=== PATIENT | male | born 1955 | race Caucasian/White ===

== ENCOUNTER 2019-07-07 12:15 | Emergency (ER) | payer MEDICAID, SELFPAY ==
[2019-07-07 12:19] VITALS: BP 145/78; PULSE 67; RESP 16; TEMP 36.4; O2SAT 96; BMI 38.3
[2019-07-07 12:32] VITALS: RESP 17
--- NOTE | 2019-07-07 12:33 | ED_ITS ---
HPI - Wound/Laceration General: Chief Complaint: Wound/Laceration Stated Complaint: lip lac Time Seen by Provider: 07/07/19 12:26 History of Present Illness: HPI narrative: Patient was using an air socket rinse to remove a bearing on an axle and it flew off and struck him in his upper lip on the left side and he sustained a laceration just a few minutes ago Onset (ago): minute(s) Location: face Place: home Patient tetanus UTD: Yes Context: accidental Associated symptoms: Reports no associated symptoms; Denies chills or fever(s) Review of Systems Const: Denies: fever or chills Skin/Breast: Reports: other (Laceration to the lip) Psych: Reports: anxiety PFSH ED PFSH: Social History Smoking and tobacco status: never smoked Physical Exam Const: COMMON NORMALS: no apparent distress and oriented x3 HENMT: COMMON NORMALS: external nose normal FACE & SINUS: normal facial exam NOSE: external nose normal NOSE IMAGE: 1. Laceration superficial did not cross vermilion line and I glued it closed no injury to the inside patient does not have any teeth Neuro: COMMON NORMALS: oriented x3 Psych: COMMON NORMALS: mental status grossly normal Procedures Laceration Laceration 1: Site: lip (Upper lip on the left side) Side (If applicable): left Size (cm): 1.5 Description: linear Depth: simple, single layer Size (cm): other (Glue) Course Vital Signs: Vital signs: Vital Signs Temperature 97.5 F L 07/07/19 12:19 Pulse Rate 67 07/07/19 12:19 Respiratory Rate 16 07/07/19 12:19 Blood Pressure 145/78 07/07/19 12:19 Pulse Oximetry 96 07/07/19 12:19 Coding Level of Care Code ED Manager Plant for Karen Montoya
--- NOTE | 2019-07-07 12:35 | PC.NURSE ---
physician decided not to suture lac
[2019-07-07 12:49] VITALS: RESP 16
== END 2019-07-07 12:49 | disposition home or self-care (01) ==
LOC: ER 12:54
PROVIDERS: Emergency Provider Nurse Practitioner Family; Family Provider Internal Medicine
DX: S01.511A Laceration without foreign body of lip, initial encounter (principal); W22.8XXA Striking against or struck by other objects, initial encounter
CPT/HCPCS: 12011; 12345; 99281; 99282

== ENCOUNTER → 2019-11-29 09:16 | Outpatient (BNVA) | payer MEDICAID, SELFPAY | PROVIDERS: Family Provider Internal Medicine; PCP Internal Medicine; Referring Provider Internal Medicine; Visit Provider Urology | DX: N48.1 Balanitis (principal); N52.9 Male erectile dysfunction, unspecified; E11.9 Type 2 diabetes mellitus without complications; N47.1 Phimosis | CPT/HCPCS: 81001 ==

== ENCOUNTER → 2020-01-28 09:06 | Outpatient (BNVA) | payer MEDICAID, SELFPAY | PROVIDERS: Family Provider Internal Medicine; PCP Internal Medicine; Visit Provider Urology | DX: N47.1 Phimosis (principal) | CPT/HCPCS: 88304 ==

== ENCOUNTER → 2020-03-10 08:49 | Outpatient (BNVA) | payer MEDICAID, SELFPAY | PROVIDERS: Family Provider Internal Medicine; PCP Internal Medicine; Visit Provider Urology | DX: N48.1 Balanitis (principal) | CPT/HCPCS: 81003 ==

== ENCOUNTER → 2020-05-04 10:38 | Outpatient (BNVA) | payer MEDICAID, SELFPAY | PROVIDERS: Family Provider Internal Medicine; PCP Internal Medicine; Referring Provider Internal Medicine; Visit Provider Specialist | DX: S43.004A Unspecified dislocation of right shoulder joint, initial encounter (principal); X58.XXXA Exposure to other specified factors, initial encounter | CPT/HCPCS: 73030 ==

== ENCOUNTER 2020-05-29 06:42 | Outpatient (CLI) | payer MEDICAID, SELFPAY ==
--- NOTE | 2020-05-29 07:15 | MR_ITS ---
WS: [id number] MRI RIGHT SHOULDER HISTORY: S43.004A - Unspecified dislocation of right shoulder joint, initial encounter COMPARISON: 12/19/2017 TECHNIQUE: Multiplanar sequences of the shoulder joint are submitted. Moderate AC joint hypertrophy. Bone and soft tissue hypertrophy with osteophytes encroaching upon the supraspinatus tendon and muscle. There is increase fluid along the AC ligament which is new. There is a large amount of fluid surrounding the humeral head. This fluid is contiguous with the AC j oint fluid. There is distention of the subacromial and subdeltoid bursa and small loose bodies in the fluid. Humeral head is high riding abutting the undersurface of the acromion. Marked widening of the glenohumeral joint. Complete tear with retraction of the supraspinatus tendon, tendon is retracted t o the glenoid. Subscapularis tendon is probably intact although thin. The distal infraspinatus tendon is not identified as intact. Severe atrophy of the supraspinatus muscle. There is mild atrophy of th e subscapularis and infraspinatus muscles. Marked irregularity of loss of cartilage involving the humeral head. Biceps tendon is not identified in the glenoid. May be retracted and medially displaced. No marrow edema or fractures. There are least 2 anchors in the humeral head from prior surgical repai r. MR/MR shoulder RT wo con* [id number] IMPRESSION: 1. Complete full-thickness tear of the supraspinatus with atrophy. Tendon is r etracted to a the glenoid. Suspect infraspinatus tendon may also be torn as it is not identified distally. 2. There is additional mild atrophy of the infraspinatus and subscapularis ten dons. 3. Subscapularis tendon is probably intact although thin. 4. Biceps tendon not identified at the bicipital groove and probably torn and medially dislocated. 5. Large joint effusion with loose bodies. Humeral head is high riding with ma rked widening of the glenohumeral joint space and lateral subluxation of the hu meral head. 6. Marked advanced degenerative changes surrounding the humeral head with loss of cartilage. 7. Moderate AC joint arthritis with encroachment upon the rotator cuff. Torn A C ligament.
== END 2020-05-29 06:43 | disposition home or self-care (01) ==
PROVIDERS: PCP Internal Medicine; Visit Provider Orthopaedic Surgery
DX: S43.004A Unspecified dislocation of right shoulder joint, initial encounter (principal); X58.XXXA Exposure to other specified factors, initial encounter; M75.121 Complete rotator cuff tear or rupture of right shoulder, not specified as traumatic; M25.411 Effusion, right shoulder
CPT/HCPCS: 73221

== ENCOUNTER → 2020-06-02 10:58 | Outpatient (BNVA) | payer MEDICAID, SELFPAY | PROVIDERS: PCP Internal Medicine; Visit Provider Orthopaedic Surgery | DX: Z20.822 Contact with and (suspected) exposure to COVID-19 (principal); Z01.812 Encounter for preprocedural laboratory examination | CPT/HCPCS: 87635 ==

== ENCOUNTER → 2020-06-05 11:44 | Outpatient (BNVA) | payer MEDICAID, SELFPAY | PROVIDERS: PCP Internal Medicine; Visit Provider Specialist | DX: G54.0 Brachial plexus disorders (principal); R20.0 Anesthesia of skin; R20.2 Paresthesia of skin; S14.3XXA Injury of brachial plexus, initial encounter; Y93.9 Activity, unspecified | CPT/HCPCS: 95886; 95908; 99202 ==

== ENCOUNTER 2021-01-15 08:22 | Outpatient (CLI) | payer MEDICAID, SELFPAY ==
--- NOTE | 2021-01-15 08:45 | USCV_ITS ---
Quan Mehta Age: 65 Gender: M : 1955 Exam Date: 01/15/2021 08:43 Ordering Phys: Vahid Lang M.D ([email or web address]) Technologist: Josi Inman [place] [facility] [place]ication: PRE OP AND ESSENTIAL HTN BP: / HR: 68 Rhythm: Sinus Technical Quality: Adequate MEASUREMENTS (Male / Female) Normal Values 2D ECHO LV Diastolic Diameter PLAX 5.6 cm 4.2 - 5.9 / 3.9 - 5.3 cm LV Systolic Diameter PLAX 3.5 cm LV Chamber Size 3.0 cm IVS Diastolic Thickness 1.6 cm 0.6 - 1.0 / 0.6 - 0.9 cm IVS Systolic Thickness 2.0 cm LVPW Diastolic Thickness 1.8 cm 0.6 - 1.0 / 0.6 - 0.9 cm LVPW Systolic Thickness 1.8 cm RV Chamber Size 4.0 cm LVOT Diameter 2.0 cm LV Ejection Fraction 2D Teich 67.2 % LV Ejection Fraction MOD 2C 62.6 % LV Ejection Fraction 2C AL 63.6 % LA Diameter 4.1 cm LA Width 3.3 cm LA Height 4.0 cm RA Width 2.1 cm RA Height 4.3 cm Aorta at Sinotubular Diameter 3.6 cm M-MODE LV Diastolic Diameter MM 7.1 cm 4.2 - 5.9 / 3.9 - 5.3 cm LV Systolic Diameter MM 4.3 cm LV Ejection Fraction MM Teich 67.8 % IVS Diastolic Thickness MM 1.8 cm 0.6 - 1.0 / 0.6 - 0.9 cm IVS Systolic Thickness MM 2.0 cm LVPW Diastolic Thickness MM 1.8 cm 0.6 - 1.0 / 0.6 - 0.9 cm LVPW Systolic Thickness MM 2.5 cm Aortic Annulus Diameter 3.8 cm LA Ao Ratio MM 1.3 MV E Point Septal Separation 0.7 cm DOPPLER AV Peak Velocity 157.0 cm/s LVOT Peak Velocity 94.0 cm/s AV Area Cont Eq vti 2.1 cm squared AV Area Cont Eq pk 2.0 cm squared MV Area PHT 3.7 cm squared Mitral E to A Ratio 1.1 MV E' Velocity 39.0 cm/s Mitral E to MV E' Ratio 9.1 Mitral E to LV E' Lateral Ratio 7.3 Mitral E to LV E' Septal Ratio 12.1 TR Peak Velocity 123.4 cm/s TR Peak Gradient 6.1 mmHg TR Mean Velocity 90.0 cm/s TR Mean Gradient 3.6 mmHg TR Velocity Time Integral 27.5 cm TV Peak E Velocity 59.0 cm/s Right Atrial Pressure 3.0 mmHg Pulmonary Artery Systolic Pressu 9.1 mmHg PV Peak Velocity 69.0 cm/s RV Acceleration Time 0.1 s RV Ejection Time 0.4 s RV AcT/ET 0.4 FINDINGS Left Ventricle Normal left ventricular size. LV systolic function is normal with EF of 55-60%. No regional wall motion abnormalities are noted. Normal diastolic filling pattern. Right Ventricle The right ventricle is normal in size and function. Right Atrium The right atrium is normal in size. Left Atrium The left atrium is normal in size. Mitral Valve Structurally normal mitral valve without significant stenosis or prolapse. There is no mitral regurgitation. Aortic Valve Structurally normal aortic valve without significant sclerosis or stenosis. There is no aortic regurgitation. Tricuspid Valve Structurally normal tricuspid valve without significant stenosis or regurgitation. Insufficient TR jet to calculate RVSP Pulmonic Valve Structurally normal pulmonic valve without significant stenosis. There is no pulmonic regurgitation. Pericardium Normal pericardium without effusion. Aorta Normal ascending aorta dimension. CONCLUSIONS LV systolic function is normal with EF of 55-60% Normal diastolic function No significant valvular heart disease is noted No comparison studies are available Vahid Lang MD (Electronically Signed) Final Date: 17 January 2021 10:55 S
== END 2021-01-15 08:23 | disposition home or self-care (01) ==
LOC: US 08:24
PROVIDERS: PCP Internal Medicine; Visit Provider Internal Medicine
DX: I10 Essential (primary) hypertension (principal); Z01.810 Encounter for preprocedural cardiovascular examination
CPT/HCPCS: 93306

== ENCOUNTER → 2021-03-27 14:37 | Outpatient (BNVA) | payer MEDICAID, SELFPAY | PROVIDERS: PCP Internal Medicine; Visit Provider Orthopaedic Surgery | DX: Z47.1 Aftercare following joint replacement surgery (principal); Z96.619 Presence of unspecified artificial shoulder joint | CPT/HCPCS: 73030 ==

== ENCOUNTER 2021-04-12 21:57 | Emergency (ER) | payer MEDICAID, SELFPAY ==
[2021-04-12 22:13] VITALS: BP 167/88; PULSE 76; RESP 16; TEMP 37.8; O2SAT 97
[2021-04-12 23:35] LABS: Glucose Point of Care 149 mg/dL (70-110)
[2021-04-12 23:40] LABS: Basophils % 0.2 %; Eosinophils # 0.1 10^3/uL (0.0-0.8); Eosinophils % 2.7 %; Hematocrit 34.8 % (42.0-52.0); Hemoglobin 11.1 g/dL (11.7-16.6); Lymphocytes # 0.9 10^3/uL (0.8-4.8); Lymphocytes % 18.8 %; Mean Corpuscular HGB Conc 31.9 g/dL (30.0-36.0); Mean Corpuscular Hemoglobin 27.6 pg (28.0-34.0); Mean Corpuscular Volume 86.6 fl (80-94); Mean Platelet Volume 10.4 fL (7.4-10.4); Monocytes # 0.4 10^3/uL (0.2-0.9); Monocytes % 8.5 %; Neutrophils # 3.33 10^3/uL (1.8-7.7); Neutrophils % 68.6 %; Nucleated Red Blood Cells % 0 %; Platelet Count 136 10^3/cmm (130-400); Red Blood Count 4.02 10^6/uL (4.1-5.3); Red Cell Distribution Width 16.2 % (12.1-15.1); White Blood Count 4.9 10^3/uL (4.0-10.0)
[2021-04-13 00:01] LABS: Alanine Aminotransferase 40 U/L (0-41); Albumin Level 3.9 g/dL (3.5-5.2); Alkaline Phosphatase 101 IU/L (40-130); Anion Gap 21.2 (5-19); Aspartate Amino Transferase 58 U/L (0-40); Blood Urea Nitrogen 8 mg/dL (8-23); Calcium 8.4 mg/dL (8.5-10.5); Carbon Dioxide 21 mmol/L (22-29); Chloride 101 mmol/L (98-107); Globulin 2.7 g/dL (1.3-4.6); Glomerular Filtration Rate 75.5 mL/min (90-130); Glucose 140 mg/dL (65-115); Osmolality Calculated 289 mOsm/kg (285-295); Potassium 4.2 mmol/L (3.5-5.1); Sodium 139 mmol/L (136-145); Total Bilirubin 0.4 mg/dL (0.15-1.2); Total Protein 6.6 g/dL (6.6-8.7)
--- NOTE | 2021-04-13 00:07 | ED_ITS ---
HPI - General Adult General: Chief complaint: General Medical Stated complaint: High Blood Sugar 436 Time Seen by Provider: 04/12/21 23:17 Source: patient Mode of arrival: ambulatory Limitations: no limitations History of Present Illness: HPI narrative: 65-year-old male states that he has been having nasal congestion sinus pain and some nasal discharge. He states that he gets a sinus infection every year and is been having the symptoms for a week. Denies any fever he states he is also had a sore throat has had a slight cough over the last week as well. He denies any shortness of breath vomiting or diarrhea. He denies any high fevers. Associated symptoms: Deny chest pain, dyspnea, headache(s), nausea, rash or v omiting Review of Systems Const: Denies: fever(s), chills, body aches or change in appetite Eyes: Denies: blurry vision or eye discomfort ENMT: Reports: throat pain, nasal discharge, nasal congestion and sinus pain Card: Denies: chest pain Resp: Denies: dyspnea GI: Denies: abdominal pain, nausea, vomiting or diarrhea : Denies: dysuria Musc: Denies: neck pain or back pain Skin/Breast: Denies: rash Neuro: Denies: headache(s) Psych: Denies: depression Reji/Lymph: Denies: easy bruising All/Imm: Denies: urticaria PFSH ED PFSH: Medical History Balanitis Diabetes Erectile dysfunction Hyperlipidemia Hypertension Myalgia Phimosis Seizure disorder Surgical History H/O umbilical hernia repair History of colonoscopy Hx of cholecystectomy S/P rotator cuff repair right Family History Mother Diabetes Heart disease Hyperlipidemia Father Heart disease Social History Alcohol intake: never Marital status: Current occupational status: retired History of recent travel: No Physical Exam Const: COMMON NORMALS: no acute distress, patient oriented x3 and healthy appearing HENMT: COMMON NORMALS: normocephalic, atraumatic and external ears normal HEAD & SCALP: normocephalic and atraumatic FACE & SINUS: Facial tenderness on exam of face and sinuses (over maxiallary sinuses) EXTERNAL EAR: Yes external ears normal MOUTH: Normal oral and palatal mucosa present THROAT: posterior oropharynx normal Eye: COMMON NORMALS: Equal, round and reactive pupils present and EOMs intact bilaterally PUPIL: Yes Equal, round and reactive pupils present Neck/C-Spine: COMMON NORMALS: full ROM and supple Chest: COMMONS NORMALS: normal inspection of the chest and normal palpation of entire chest wall Resp: COMMON NORMALS: normal respiratory effort, No retractions, No use of accessory muscles and clear to auscultation bilaterally AUSCULTATION: clear to auscultation bilaterally Cardio: COMMON NORMALS: regular rate, regular rhythm and No murmurs present (Cardio) RATE: regular rate RHYTHM: regular rhythm GI: COMMON NORMALS: Normal to inspection, nondistended, normoactive bowel sounds present, Soft to palpation, non-tender and no masses PALPATION: Yes Soft to palpation Extremity: COMMON NORMALS: normal to inspection and full ROM Neuro: COMMON NORMALS: patient oriented x3, moves all extremities and no focal motor deficits Psych: COMMON NORMALS: mental status grossly normal, Normal thought process present and cooperative THOUGHT PROCESS: Normal thought process present Skin: COMMON NORMALS: no rashes or lesions noted and no wounds GENERAL SKIN EXAM: no rashes or lesions noted Course Vital Signs: Vital signs: Vital Signs Temperature 100.1 F H 04/12/21 22:13 Pulse Rate 76 04/12/21 22:13 Respiratory Rate 16 04/12/21 22:13 Blood Pressure 167/88 04/12/21 22:13 Pulse Oximetry 97 04/12/21 22:13 MDM - General Adult MDM Narrative: Medical decision making narrative: Patient presents with low- grade fever, sinus pain. Likely has a sinus infection patient's not requiring oxygen here some slight haziness on his x-ray possible viral pneumonia we will start him on Augmentin for his sinus infection he is otherwise well-appearing here he stable for discharge he is to follow-up with PCP in 3 to 5 days return if worsening. Lab Data: Labs: Lab Results 04/12/21 04/12/21 04/12/21 23:29 23:33 23:33 WBC 4.9 10^3/uL 10^3/ uL (4.0-10.0) RBC 4.02 10^6/uL L 10 ^6/uL (4.1-5.3) Hgb 11.1 g/dL L g/dL (11.7-16.6) Hct 34.8 % L % (42.0-52.0) MCV 86.6 fl fl (80-94) MCH 27.6 pg L pg (28.0-34.0) MCHC 31.9 g/dL g/dL (30.0-36.0) RDW 16.2 % H % (12.1-15.1) Plt Count 136 10^3/cmm 10^3 /cmm (130-400) MPV 10.4 fL fL (7.4-10.4) Neut % (Auto) 68.6 % % Lymph % (Auto) 18.8 % % [place] % (Auto) 8.5 % % Eos % (Auto) 2.7 % % Baso % (Auto) 0.2 % % Neut # (Auto) 3.33 10^3/uL 10^3 /uL (1.8-7.7) Lymph # (Auto) 0.9 10^3/uL 10^3/ uL (0.8-4.8) [place] # (Auto) 0.4 10^3/uL 10^3/ uL (0.2-0.9) Eos # (Auto) 0.1 10^3/uL 10^3/ uL (0.0-0.8) Baso # (Auto) 0.0 10^3/uL 10^3/ uL (0.0-0.1) Nucleated RBC % (a uto) 0 % % Nucleated RBCs # 0.0 /100WBC /100W BC Sodium 139 mmol/L mmol/L (136-145) Potassium 4.2 mmol/L mmol/L (3.5-5.1) Chloride 101 mmol/L mmol/L (98-107) Carbon Dioxide 21 mmol/L L mmol/ L (22-29) Anion Gap 21.2 H (5-19) BUN 8 mg/dL mg/dL (8-23) Creatinine 1.0 mg/dL mg/dL (0.7-1.2) GFR Calculation 75.5 mL/min L mL/ min (90-130) Glucose 140 mg/dL H mg/dL (65-115) POC Glucose 149 mg/dL H mg/dL (70-110) Calculated Osmolal ity 289 mOsm/kg mOsm/ kg (285-295) Calcium 8.4 mg/dL L mg/dL (8.5-10.5) Total Bilirubin 0.4 mg/dL mg/dL (0.15-1.2) AST 58 U/L H U/L (0-40) ALT 40 U/L U/L (0-41) Alkaline Phosphata se 101 IU/L IU/L (40-130) Total Protein 6.6 g/dL g/dL (6.6-8.7) Albumin 3.9 g/dL g/dL (3.5-5.2) Globulin 2.7 g/dL g/dL (1.3-4.6) SARS-CoV-2 Ag (Rap id) 04/12/21 23:55 WBC RBC Hgb Hct MCV MCH MCHC RDW Plt Count MPV Neut % (Auto) Lymph % (Auto) [place] % (Auto) Eos % (Auto) Baso % (Auto) Neut # (Auto) Lymph # (Auto) [place] # (Auto) Eos # (Auto) Baso # (Auto) Nucleated RBC % (a uto) Nucleated RBCs # Sodium Potassium Chloride Carbon Dioxide Anion Gap BUN Creatinine GFR Calculation Glucose POC Glucose Calculated Osmolal ity Calcium Total Bilirubin AST ALT Alkaline Phosphata se Total Protein Albumin Globulin SARS-CoV-2 Ag (Rap id) Negative (Negative) Discharge Plan Discharge Patient Disposition: Home Clinical Impression: Sinusitis Qualifiers: Sinusitis location: maxillary Chronicity: acute Recurrence: recurrent Qualified Code(s): J01.01 - Acute recurrent maxillary sinusitis Condition: Stable Prescriptions: New Augmentin 875-125 mg tablet 1 tab PO BID Qty: 14 RF: 0 No Action Victoza 2-Kieran 0.6 mg/0.1 mL (18 mg/3 mL) pen injector 1.2 mg SUBCUT DAILY RF: 0 omeprazole 40 mg capsule,delayed release(DR/EC) 40 mg PO BID RF: 0 cholecalciferol (vitamin D3) 1,250 mcg (50,000 unit) tablet PO .2 times weekly RF: 0 metformin 1,000 mg tablet 1,000 mg PO BID RF: 0 furosemide 40 mg tablet 40 mg PO DAILY RF: 0 Lantus U-100 Insulin 100 unit/mL solution 36 unit SUBCUT DAILY RF: 0 loratadine [Allergy Relief (loratadine)] 10 mg tablet 10 mg PO DAILY RF: 0 lisinopril 20 mg tablet 20 mg PO DAILY RF: 0 fluticasone propionate [Flonase Allergy Relief] 50 mcg/actuation spray,suspension 2 spray intranasal DAILY RF: 0 Jardiance 10 mg tablet 10 mg PO DAILY RF: 0 albuterol sulfate 2.5 mg /3 mL (0.083 %) solution for nebulization 2.5 mg inhalation Q4H PRNRF: 0 atorvastatin 20 mg tablet 20 mg PO DAILY RF: 0 metoprolol tartrate 25 mg tablet 25 mg PO BID Qty: 180 RF: 1 sildenafil 100 mg tablet 100 mg PO DAILY PRN (Reason: sexual activity) Qty: 7 RF: 12 Discharge Orders: Discharge ED (Routine); Ordered 04/13/21 Ordered By: Domenico Person Referrals: Re Carson MD [Primary Care Provider] - Discharge Diet: Advance as tolerated Discharge Activity: Resume usual activity Patient Instructions: Sinusitis (ED) Coding Level of Care Code ED Disaster Or Damage Control Specialist for Chg Fwd Exam Comprehensive
--- NOTE | 2021-04-13 00:10 | XRR_ITS ---
PROCEDURE INFORMATION: Exam: XR Chest Exam date and time: 04/13/2021 12:10 AM Age: 65 years old Clinical indication: Cough TECHNIQUE: Imaging protocol: XR of the chest. Views: 1 view. COMPARISON: CR Chest 1 [place] [id number] 04/12/2019 8:15 AM FINDINGS: Lungs: Mild left basilar pneumonia. Pleural spaces: Unremarkable. No pleural effusion. No pneumothorax. Heart/Mediastinum: Unremarkable. No cardiomegaly. Bones/joints: Total right shoulder replacement. XR/XR chest 1V portable [id number] IMPRESSION: Mild left basilar pneumonia.
[2021-04-13 00:18] LABS: SARS Covid-2 Antigen Negative (Negative)
[2021-04-13 00:53] VITALS: PULSE 89; O2SAT 97
[2021-04-13] MEDS: amoxicillin-clav 875-125 mg Tablet 1 TAB PO (00:53)
== END 2021-04-13 00:55 | disposition home or self-care (01) ==
PROVIDERS: Emergency Provider Emergency Medicine; PCP Internal Medicine
DX: J01.01 Acute recurrent maxillary sinusitis (principal); E11.9 Type 2 diabetes mellitus without complications; Z79.84 Long term (current) use of oral hypoglycemic drugs; I10 Essential (primary) hypertension
CPT/HCPCS: 36416; 71045; 80053; 82962; 85025; 87426; 99283

== ENCOUNTER 2021-04-26 08:06 | Outpatient (CLI) | payer MEDICAID, SELFPAY ==
--- NOTE | 2021-04-26 08:00 | FL_ITS ---
WS: [id number] Modified barium swallow, 04/26/2021 Clinical Data: Retention of fluid in the throat, increased phlegm. Comparison: None. Fluoroscopy time: 1.4 minutes. Findings: The patient showed no functional abnormalities. The patient had good anterior to posterior propulsion . There is no aspiration or penetration. The barium tablet passed normally from the oral cavity into the hypopharynx and distally. FL/FL barium swallow modifd [id number] Impression: Negative modified barium swallow.
== END 2021-04-26 08:07 | disposition home or self-care (01) ==
LOC: RAD 08:07
PROVIDERS: PCP Internal Medicine; Visit Provider Otolaryngology
DX: R13.10 Dysphagia, unspecified (principal)
CPT/HCPCS: 74230; 92611

== ENCOUNTER 2021-04-26 12:39 | Emergency (ER) | payer MEDICAID, SELFPAY ==
[2021-04-26 12:52] VITALS: BP 145/76; PULSE 91; RESP 20; TEMP 36.3; O2SAT 96
[2021-04-26 12:54] VITALS: PULSE 80; RESP 15; O2SAT 95
--- NOTE | 2021-04-26 13:02 | W.ED.ABDPA2 ---
Documented by User: Laure Junior PA-C 04/26/21 14:36 HPI - Abdominal Pain General: Chief Complaint: Abdominal Pain Stated Complaint: BLACK STOOLS Time Seen by Provider: 04/26/21 13:02 Source: patient Mode of arrival: ambulatory Limitations: no limitations History of Present Illness: HPI narrative: 65-year-old male presents to the ER today for black stools x3 days. Patient reports he had this many years ago and had an upper GI bleed. Patient reports he was in the hospital several days at that time. Patient reports lately he is felt not well and then about 3 days ago noticed black stools. Patient reports he normally has watery diarrhea all the time however with the black stool started his stool was formed. Patient had black stools this a.m. and then went while in the hospital here and reports normal stools then. Patient denies any dizziness, chest pain, shortness of breath. Patient reports otherwise doing well at this time. MD elicited complaint: abdominal pain Pertinent past history: gastrointestinal bleeding Onset (ago): day(s) Pain Consistency: intermittent Location: Diffuse Severity: mild Quality: other (bloating) Radiation: none Exacerbating factors: nothing Relieving factors: nothing Associated Symptoms: Reports bloating, diarrhea, nausea and other (black stools); Denies chills, constipation, fever(s) and vomiting Review of Systems General: Reports: 10 or more systems reviewed and unremarkable except in HPI and below Const: Denies: fever(s) or chills ENMT: Denies: throat pain, nasal discharge or nasal congestion Card: Denies: chest pain or palpitations Resp: Denies: dyspnea, productive cough or wheezing GI: Reports: nausea, diarrhea, bloating and other (black stools); Denies: vomiting or constipation : Denies: flank pain or difficulty urinating Musc: Denies: neck pain or back pain Skin/Breast: Denies: rash Neuro: Denies: headache(s) Psych: Denies: anxiety or depression PFSH ED PFSH: Medical History Balanitis Diabetes Erectile dysfunction Hyperlipidemia Hypertension Myalgia Phimosis Seizure disorder Surgical History H/O umbilical hernia repair History of colonoscopy Hx of cholecystectomy S/P rotator cuff repair right Family History Mother Diabetes Heart disease Hyperlipidemia Father Heart disease Social History Alcohol intake: never Marital status: Current occupational status: retired History of recent travel: No Physical Exam Const: COMMON NORMALS: no acute distress, patient oriented x3 and no limitations GENERAL APPEARANCE: cooperative and comfortable HENMT: COMMON NORMALS: normocephalic, external ears normal and Normal external nose present HEAD & SCALP: normocephalic NOSE: Normal external nose present EXTERNAL EAR: Yes external ears normal Eye: COMMON NORMALS: conjunctivae normal CONJUNCTIVA: Yes conjunctivae normal Neck/C-Spine: COMMON NORMALS: full ROM and no lymphadenopathy Resp: COMMON NORMALS: normal respiratory effort, No retractions and clear to auscultation bilaterally EFFORT & INSPECTION: Yes able to speak in complete sentences AUSCULTATION: clear to auscultation bilaterally, no rales, no rhonchi and no wheezes Cardio: COMMON NORMALS: regular rate and regular rhythm RATE: regular rate RHYTHM: regular rhythm GI: COMMON NORMALS: non-tender INSPECTION: Yes abdominal distension PALPATION: Yes Firmness to palpation present (GI) and No Guarding due to palpation present (GI) Back/Pelvis: THORACIC SPINE/UPPER BACK: Yes normal to inspection LUMBAR SPINE/LOWER BACK: Yes normal to inspection Extremity: COMMON NORMALS: normal to inspection and full ROM Neuro: COMMON NORMALS: patient oriented x3 and moves all extremities Psych: COMMON NORMALS: mental status grossly normal, Normal thought process present and cooperative THOUGHT PROCESS: Normal thought process present Skin: COMMON NORMALS: no rashes or lesions noted GENERAL SKIN EXAM: no rashes or lesions noted Course ED course: 65-year-old male presents to the ER today for black stools x3 days. Patient has a history of a GI bleed. We will do lab work and CT scan at this time. Reevaluation(s): Reevaluation #1: Patient did not disclose that he had a barium swallow this a.m. Given this, radiology does not feel they will get a good image on CT. Patient's labs are unremarkable and do not indicate a significant GI bleed. Rectal exam was performed and occult blood was not noted. Discussed with patient that we would not get good imaging and I would recommend he follow-up with his primary care if black stools return for a CT. Time: 14:31 Vital Signs: Vital signs: Vital Signs Temperature 97.3 F L 04/26/21 12:52 Pulse Rate 98 04/26/21 15:27 Respiratory Rate 18 04/26/21 15:27 Blood Pressure 123/74 04/26/21 15:27 Pulse Oximetry 95 04/26/21 15:27 MDM - Abdominal Pain MDM Narrative: Medical decision making narrative: 65-year-old male presents to the ER today for black stools x3 days. Patient reports bloating but denies any acute abdominal pain. Labs done in the ER today do not indicate low hemoglobin or evidence of an acute GI bleed. Lipase and AST were slightly elevated otherwise mostly unremarkable. Patient did not disclose until he was in radiology that he had a barium swallow this a.m. Radiology feels that would skew images and would not make them accurate. I discussed this with patient. I do not feel that patient is high risk for an acute GI bleed based on his labs. I would recommend patient follow-up with his primary care first of next week and if black stools persist they can do a CT. Patient verbalized understanding and was in agreement with this plan. Return to the ER with any new or worsening symptoms. Lab Data: Attestation: I reviewed the patient's lab results. Labs: Lab Results 04/26/21 04/26/21 13:50 13:50 WBC 7.6 10^3/uL 10^3/ uL (4.0-10.0) RBC 4.46 10^6/uL 10^6 /uL (4.1-5.3) Hgb 12.2 g/dL g/dL (11.7-16.6) Hct 38.7 % L % (42.0-52.0) MCV 86.8 fl fl (80-94) MCH 27.4 pg L pg (28.0-34.0) MCHC 31.5 g/dL g/dL (30.0-36.0) RDW 16.5 % H % (12.1-15.1) Plt Count 247 10^3/cmm 10^3 /cmm (130-400) MPV 10.4 fL fL (7.4-10.4) Neut % (Auto) 60.2 % % Lymph % (Auto) 27.6 % % [place] % (Auto) 7.1 % % Eos % (Auto) 3.4 % % Baso % (Auto) 0.5 % % Neut # (Auto) 4.54 10^3/uL 10^3 /uL (1.8-7.7) Lymph # (Auto) 2.1 10^3/uL 10^3/ uL (0.8-4.8) [place] # (Auto) 0.5 10^3/uL 10^3/ uL (0.2-0.9) Eos # (Auto) 0.3 10^3/uL 10^3/ uL (0.0-0.8) Baso # (Auto) 0.0 10^3/uL 10^3/ uL (0.0-0.1) Nucleated RBC % (a uto) 0 % % Nucleated RBCs # 0.0 /100WBC /100W BC Sodium 140 mmol/L mmol/L (136-145) Potassium 3.7 mmol/L mmol/L (3.5-5.1) Chloride 101 mmol/L mmol/L (98-107) Carbon Dioxide 23 mmol/L mmol/L (22-29) Anion Gap 19.7 H (5-19) BUN 9 mg/dL mg/dL (8-23) Creatinine 1.0 mg/dL mg/dL (0.7-1.2) GFR Calculation 75.5 mL/min L mL/ min (90-130) Glucose 128 mg/dL H mg/dL (65-115) Calculated Osmolal ity 290 mOsm/kg mOsm/ kg (285-295) Calcium 9.1 mg/dL mg/dL (8.5-10.5) Total Bilirubin 0.5 mg/dL mg/dL (0.15-1.2) AST 48 U/L H U/L (0-40) ALT 35 U/L U/L (0-41) Alkaline Phosphata se 87 IU/L IU/L (40-130) Total Protein 7.8 g/dL g/dL (6.6-8.7) Albumin 4.2 g/dL g/dL (3.5-5.2) Globulin 3.6 g/dL g/dL (1.3-4.6) Lipase 68 U/L H U/L (13-60) Critical Care Time Critical Care Time: Critical Care Time: No Discharge Plan Discharge Patient Disposition: Home Clinical Impression: Black stool Condition: Stable Prescriptions: No Action Victoza 2-Kieran 0.6 mg/0.1 mL (18 mg/3 mL) pen injector 1.2 mg SUBCUT DAILY RF: 0 omeprazole 40 mg capsule,delayed release(DR/EC) 40 mg PO BID RF: 0 cholecalciferol (vitamin D3) 1,250 mcg (50,000 unit) tablet PO .2 times weekly RF: 0 metformin 1,000 mg tablet 1,000 mg PO BID RF: 0 furosemide 40 mg tablet 40 mg PO DAILY RF: 0 Lantus U-100 Insulin 100 unit/mL solution 36 unit SUBCUT DAILY RF: 0 loratadine [Allergy Relief (loratadine)] 10 mg tablet 10 mg PO DAILY RF: 0 lisinopril 20 mg tablet 20 mg PO DAILY RF: 0 fluticasone propionate [Flonase Allergy Relief] 50 mcg/actuation spray,suspension 2 spray intranasal DAILY RF: 0 Jardiance 10 mg tablet 10 mg PO DAILY RF: 0 albuterol sulfate 2.5 mg /3 mL (0.083 %) solution for nebulization 2.5 mg inhalation Q4H PRNRF: 0 atorvastatin 20 mg tablet 20 mg PO DAILY RF: 0 metoprolol tartrate 25 mg tablet 25 mg PO BID Qty: 180 RF: 1 sildenafil 100 mg tablet 100 mg PO DAILY PRN (Reason: sexual activity) Qty: 7 RF: 12 Augmentin 875-125 mg tablet 1 tab PO BID Qty: 14 RF: 0 Discharge Orders: Discharge ED (Routine); Ordered 04/26/21 Ordered By: Laure Junior Referrals: Re Carson MD [Primary Care Provider] - Discharge Diet: Advance as tolerated Discharge Activity: Resume usual activity Patient Instructions: Opioid Safety Activity Restrictions/Additional Instructions: If black stools persist, follow-up with primary care. You may need additional imaging done that would not have been accurate in the ER today given the barium swallow this morning. Continue to monitor stools and color/consistency. Follow-up PCP in 1 week. Return to the ER with any new or worsening symptoms. Coding Level of Care Code ED Outside Maintenance Worker for Chg Fwd Exam Comprehensive Documented by User: Ld Coles DO 04/26/21 17:40 HPI - Abdominal Pain General: Chief Complaint: Abdominal Pain Stated Complaint: BLACK STOOLS Time Seen by Provider: 04/26/21 13:02 PFSH ED PFSH: Medical History Balanitis Diabetes Erectile dysfunction Hyperlipidemia Hypertension Myalgia Phimosis Seizure disorder Surgical History H/O umbilical hernia repair History of colonoscopy Hx of cholecystectomy S/P rotator cuff repair right Family History Mother Diabetes Heart disease Hyperlipidemia Father Heart disease Social History Alcohol intake: never Marital status: Current occupational status: retired History of recent travel: No Course Vital Signs: Vital signs: Vital Signs Temperature 97.3 F L 04/26/21 12:52 Pulse Rate 98 04/26/21 15:27 Respiratory Rate 18 04/26/21 15:27 Blood Pressure 123/74 04/26/21 15:27 Pulse Oximetry 95 04/26/21 15:27 MDM - Abdominal Pain MDM Narrative: Medical decision making narrative: Chart reviewed and patient discussed with midlevel. Agree with assessment and plan. Lab Data: Labs: Lab Results 04/26/21 04/26/21 13:50 13:50 WBC 7.6 10^3/uL 10^3/ uL (4.0-10.0) RBC 4.46 10^6/uL 10^6 /uL (4.1-5.3) Hgb 12.2 g/dL g/dL (11.7-16.6) Hct 38.7 % L % (42.0-52.0) MCV 86.8 fl fl (80-94) MCH 27.4 pg L pg (28.0-34.0) MCHC 31.5 g/dL g/dL (30.0-36.0) RDW 16.5 % H % (12.1-15.1) Plt Count 247 10^3/cmm 10^3 /cmm (130-400) MPV 10.4 fL fL (7.4-10.4) Neut % (Auto) 60.2 % % Lymph % (Auto) 27.6 % % [place] % (Auto) 7.1 % % Eos % (Auto) 3.4 % % Baso % (Auto) 0.5 % % Neut # (Auto) 4.54 10^3/uL 10^3 /uL (1.8-7.7) Lymph # (Auto) 2.1 10^3/uL 10^3/ uL (0.8-4.8) [place] # (Auto) 0.5 10^3/uL 10^3/ uL (0.2-0.9) Eos # (Auto) 0.3 10^3/uL 10^3/ uL (0.0-0.8) Baso # (Auto) 0.0 10^3/uL 10^3/ uL (0.0-0.1) Nucleated RBC % (a uto) 0 % % Nucleated RBCs # 0.0 /100WBC /100W BC Sodium 140 mmol/L mmol/L (136-145) Potassium 3.7 mmol/L mmol/L (3.5-5.1) Chloride 101 mmol/L mmol/L (98-107) Carbon Dioxide 23 mmol/L mmol/L (22-29) Anion Gap 19.7 H (5-19) BUN 9 mg/dL mg/dL (8-23) Creatinine 1.0 mg/dL mg/dL (0.7-1.2) GFR Calculation 75.5 mL/min L mL/ min (90-130) Glucose 128 mg/dL H mg/dL (65-115) Calculated Osmolal ity 290 mOsm/kg mOsm/ kg (285-295) Calcium 9.1 mg/dL mg/dL (8.5-10.5) Total Bilirubin 0.5 mg/dL mg/dL (0.15-1.2) AST 48 U/L H U/L (0-40) ALT 35 U/L U/L (0-41) Alkaline Phosphata se 87 IU/L IU/L (40-130) Total Protein 7.8 g/dL g/dL (6.6-8.7) Albumin 4.2 g/dL g/dL (3.5-5.2) Globulin 3.6 g/dL g/dL (1.3-4.6) Lipase 68 U/L H U/L (13-60) Discharge Plan Discharge Patient Disposition: Home Clinical Impression: Black stool Condition: Stable Prescriptions: No Action Victoza 2-Kieran 0.6 mg/0.1 mL (18 mg/3 mL) pen injector 1.2 mg SUBCUT DAILY RF: 0 omeprazole 40 mg capsule,delayed release(DR/EC) 40 mg PO BID RF: 0 cholecalciferol (vitamin D3) 1,250 mcg (50,000 unit) tablet PO .2 times weekly RF: 0 metformin 1,000 mg tablet 1,000 mg PO BID RF: 0 furosemide 40 mg tablet 40 mg PO DAILY RF: 0 Lantus U-100 Insulin 100 unit/mL solution 36 unit SUBCUT DAILY RF: 0 loratadine [Allergy Relief (loratadine)] 10 mg tablet 10 mg PO DAILY RF: 0 lisinopril 20 mg tablet 20 mg PO DAILY RF: 0 fluticasone propionate [Flonase Allergy Relief] 50 mcg/actuation spray,suspension 2 spray intranasal DAILY RF: 0 Jardiance 10 mg tablet 10 mg PO DAILY RF: 0 albuterol sulfate 2.5 mg /3 mL (0.083 %) solution for nebulization 2.5 mg inhalation Q4H PRNRF: 0 atorvastatin 20 mg tablet 20 mg PO DAILY RF: 0 metoprolol tartrate 25 mg tablet 25 mg PO BID Qty: 180 RF: 1 sildenafil 100 mg tablet 100 mg PO DAILY PRN (Reason: sexual activity) Qty: 7 RF: 12 Augmentin 875-125 mg tablet 1 tab PO BID Qty: 14 RF: 0 Discharge Orders: Discharge ED (Routine); Ordered 04/26/21 Ordered By: Laure Junior Referrals: Re Carson MD [Primary Care Provider] - Discharge Diet: Advance as tolerated Discharge Activity: Resume usual activity Patient Instructions: Opioid Safety Activity Restrictions/Additional Instructions: If black stools persist, follow-up with primary care. You may need additional imaging done that would not have been accurate in the ER today given the barium swallow this morning. Continue to monitor stools and color/consistency. Follow-up PCP in 1 week. Return to the ER with any new or worsening symptoms. Coding Level of Care Code ED Outside Maintenance Worker for Chg Fwd Exam Comprehensive
[2021-04-26 13:56] LABS: Basophils % 0.5 %; Eosinophils # 0.3 10^3/uL (0.0-0.8); Eosinophils % 3.4 %; Hematocrit 38.7 % (42.0-52.0); Hemoglobin 12.2 g/dL (11.7-16.6); Lymphocytes # 2.1 10^3/uL (0.8-4.8); Lymphocytes % 27.6 %; Mean Corpuscular HGB Conc 31.5 g/dL (30.0-36.0); Mean Corpuscular Hemoglobin 27.4 pg (28.0-34.0); Mean Corpuscular Volume 86.8 fl (80-94); Mean Platelet Volume 10.4 fL (7.4-10.4); Monocytes # 0.5 10^3/uL (0.2-0.9); Monocytes % 7.1 %; Neutrophils # 4.54 10^3/uL (1.8-7.7); Neutrophils % 60.2 %; Nucleated Red Blood Cells % 0 %; Platelet Count 247 10^3/cmm (130-400); Red Blood Count 4.46 10^6/uL (4.1-5.3); Red Cell Distribution Width 16.5 % (12.1-15.1); White Blood Count 7.6 10^3/uL (4.0-10.0)
[2021-04-26 14:15] LABS: Alanine Aminotransferase 35 U/L (0-41); Albumin Level 4.2 g/dL (3.5-5.2); Alkaline Phosphatase 87 IU/L (40-130); Anion Gap 19.7 (5-19); Aspartate Amino Transferase 48 U/L (0-40); Blood Urea Nitrogen 9 mg/dL (8-23); Calcium 9.1 mg/dL (8.5-10.5); Carbon Dioxide 23 mmol/L (22-29); Chloride 101 mmol/L (98-107); Globulin 3.6 g/dL (1.3-4.6); Glomerular Filtration Rate 75.5 mL/min (90-130); Glucose 128 mg/dL (65-115); Lipase 68 U/L (13-60); Osmolality Calculated 290 mOsm/kg (285-295); Potassium 3.7 mmol/L (3.5-5.1); Sodium 140 mmol/L (136-145); Total Bilirubin 0.5 mg/dL (0.15-1.2); Total Protein 7.8 g/dL (6.6-8.7)
[2021-04-26 15:27] VITALS: BP 123/74; PULSE 98; RESP 18; O2SAT 95
== END 2021-04-26 15:29 | disposition home or self-care (01) ==
PROVIDERS: Emergency Medicine; Emergency Provider Physician Assistant; PCP Internal Medicine
DX: R19.5 Other fecal abnormalities (principal); Z79.84 Long term (current) use of oral hypoglycemic drugs; Z79.4 Long term (current) use of insulin; E11.9 Type 2 diabetes mellitus without complications; E78.5 Hyperlipidemia, unspecified; I10 Essential (primary) hypertension
CPT/HCPCS: 80053; 83690; 85025; 99283

== ENCOUNTER 2021-04-28 10:11 | Emergency (ER) | payer MEDICAID, SELFPAY ==
[2021-04-28 10:23] VITALS: BP 156/82; PULSE 76; RESP 16; TEMP 36.3; O2SAT 96; BMI 37.5
--- NOTE | 2021-04-28 10:40 | XRR_ITS ---
PROCEDURE INFORMATION: Exam: XR Abdomen Exam date and time: 04/28/2021 10:40 AM Age: 65 years old Clinical indication: Constipation TECHNIQUE: Imaging protocol: XR of the abdomen. Views: Frontal supine view of the abdomen. 1 View. COMPARISON: CT abdomen pelvis w con* [id number] 03/23/2019 9:17 AM FINDINGS: Gastrointestinal tract: Normal. No bowel dilation. 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
--- NOTE | 2021-04-28 11:00 | ED_ITS ---
HPI - Abdominal Pain General: Chief Complaint: Abdominal Pain Stated Complaint: NO BM X 2 DAYS Time Seen by Provider: 04/28/21 10:40 History of Present Illness: HPI narrative: 65yo male presents ER complaining of abdominal discomfort. He has not had a bowel movement for last 2 days he was here couple days ago complaining of constipation start taking stool softeners but felt he really has not had any relief. Denies any fever sweats chills no sharp lower abdominal pain he previously had had his gallbladder out no vomiting. MD elicited complaint: abdominal pain Pertinent past history: constipation Onset (ago): day(s) Pain Consistency: intermittent Location: Diffuse Severity: mild Quality: cramping Radiation: none Migration to: no migration Exacerbating factors: nothing Relieving factors: nothing Associated Symptoms: Reports bloating, change in bowel habits, constipation and GI cramping; Denies anorexia, belching, change in stool character, chills, coffee ground emesis, dyspepsia, dysuria, excessive flatus, fever(s), heartburn, hematochezia, hematuria, hematemesis, fecal incontinence, loose stools, melena, nausea, poor appetite, syncope and vomiting Review of Systems Const: Denies: fever(s) or chills ENMT: Denies: throat pain, ear or mastoid pain, nasal discharge or nasal congestion Card: Denies: syncope Resp: Denies: dyspnea, productive cough or non-productive cough GI: Reports: constipation, bloating, GI cramping and change in bowel habits; Denies: nausea, vomiting, hematemesis, coffee ground emesis, heartburn, belching, excessive flatus, fecal incontinence, change in stool character, hematochezia or melena : Denies: dysuria or hematuria Skin/Breast: Denies: rash or pruritus PFSH ED PFSH: Medical History Balanitis Diabetes Erectile dysfunction Hyperlipidemia Hypertension Myalgia Phimosis Seizure disorder Surgical History H/O umbilical hernia repair History of colonoscopy Hx of cholecystectomy S/P rotator cuff repair right Family History Mother Diabetes Heart disease Hyperlipidemia Father Heart disease Social History Alcohol intake: never Marital status: Current occupational status: retired History of recent travel: No Physical Exam Const: COMMON NORMALS: no acute distress GENERAL APPEARANCE: cooperative and comfortable ORIENTATION/CONSCIOUSNESS: Yes awake, Yes oriented to person, Yes oriented to place and Yes oriented to time HENMT: COMMON NORMALS: normocephalic, atraumatic and hearing grossly normal bilaterally HEAD & SCALP: normocephalic and atraumatic Neck/C-Spine: COMMON NORMALS: no JVD Resp: COMMON NORMALS: normal respiratory effort, No retractions, No use of accessory muscles and clear to auscultation bilaterally AUSCULTATION: clear to auscultation bilaterally Cardio: COMMON NORMALS: no JVD, regular rate, regular rhythm and No murmurs present (Cardio) RATE: regular rate RHYTHM: regular rhythm GI: COMMON NORMALS: No hepatosplenomegaly present PALPATION: Yes Tenderness to palpation present (GI) (Diffuse), No Guarding due to palpation present (GI), No Rigid due to palpation and Yes No hepatosplenomegaly present Extremity: COMMON NORMALS: normal to inspection, capillary refill normal, no clubbing, cyanosis or edema, no calf tenderness and no pedal edema Neuro: SENSORIUM/ORIENTATION: Yes oriented to person, Yes oriented to place and Yes oriented to time Skin: COMMON NORMALS: no rashes or lesions noted GENERAL SKIN EXAM: no rashes or lesions noted Course Vital Signs: Vital signs: Vital Signs Temperature 97.3 F L 04/28/21 10:23 Pulse Rate 68 04/28/21 11:20 Respiratory Rate 16 04/28/21 11:20 Blood Pressure 134/81 04/28/21 11:20 Pulse Oximetry 94 04/28/21 11:20 MDM - Abdominal Pain MDM Narrative: Medical decision making narrative: Labs imaging reviewed on chart. Patient nontoxic in appearance we will go ahead and discharge patient home with mag citrate to use as needed. Also start on Michelle-Colace twice daily as per regimen to maintain regular bowel movements. Discharge Plan Discharge Patient Disposition: Home Clinical Impression: Constipation Condition: Stable Prescriptions: New magnesium citrate Solution 150 ml PO BID PRN (Reason: constipation) Qty: 296 RF: 0 No Action Victoza 2-Kieran 0.6 mg/0.1 mL (18 mg/3 mL) pen injector 1.2 mg SUBCUT DAILY RF: 0 omeprazole 40 mg capsule,delayed release(DR/EC) 40 mg PO BID RF: 0 cholecalciferol (vitamin D3) 1,250 mcg (50,000 unit) tablet PO .2 times weekly RF: 0 metformin 1,000 mg tablet 1,000 mg PO BID RF: 0 furosemide 40 mg tablet 40 mg PO DAILY RF: 0 Lantus U-100 Insulin 100 unit/mL solution 36 unit SUBCUT DAILY RF: 0 loratadine [Allergy Relief (loratadine)] 10 mg tablet 10 mg PO DAILY RF: 0 lisinopril 20 mg tablet 20 mg PO DAILY RF: 0 fluticasone propionate [Flonase Allergy Relief] 50 mcg/actuation spray,suspension 2 spray intranasal DAILY RF: 0 Jardiance 10 mg tablet 10 mg PO DAILY RF: 0 albuterol sulfate 2.5 mg /3 mL (0.083 %) solution for nebulization 2.5 mg inhalation Q4H PRNRF: 0 atorvastatin 20 mg tablet 20 mg PO DAILY RF: 0 metoprolol tartrate 25 mg tablet 25 mg PO BID Qty: 180 RF: 1 sildenafil 100 mg tablet 100 mg PO DAILY PRN (Reason: sexual activity) Qty: 7 RF: 12 Augmentin 875-125 mg tablet 1 tab PO BID Qty: 14 RF: 0 Discharge Orders: Discharge ED (Routine); Ordered 04/28/21 Ordered By: Ld Coles Referrals: Re Carson MD [Primary Care Provider] - Patient Instructions: Opioid Safety Activity Restrictions/Additional Instructions: Use 150 mL of magnesium citrate every 12 hours until he achieves good bowel movement. Follow-up with your primary care doctor continue to take stool softeners regularly to prevent constipation in the future. Coding Level of Care Code ED Tooling Specialist for Karen Montoya
[2021-04-28 11:20] VITALS: BP 134/81; PULSE 68; RESP 16; O2SAT 94
== END 2021-04-28 11:21 | disposition home or self-care (01) ==
PROVIDERS: Emergency Provider Family Medicine; PCP Internal Medicine
DX: K59.00 Constipation, unspecified (principal); E78.5 Hyperlipidemia, unspecified; I10 Essential (primary) hypertension
CPT/HCPCS: 74018; 99282

== ENCOUNTER 2021-05-09 14:15 | Outpatient (CLI) | payer MEDICAID, SELFPAY ==
--- NOTE | 2021-05-09 14:36 | XRR_ITS ---
PROCEDURE INFORMATION: Exam: XR Chest Exam date and time: 05/09/2021 2:36 PM Age: 65 years old Clinical indication: Cough; Prior surgery; Surgery type: Shoulder replacement; Patient HX: Difficulty breathing when laying down and early in the morning x5 months TECHNIQUE: Imaging protocol: XR of the chest. Views: 2 views. COMPARISON: CR (CHEST, ) 04/13/2021 12:22 AM FINDINGS: Lungs: Unremarkable. No consolidation. Pleural spaces: Unremarkable. No pleural effusion. No pneumothorax. Heart/Mediastinum: Unremarkable. No cardiomegaly. Bones/joints: Reverse right total shoulder arthroplasty noted. Visualized osseous structures are intact. XR/XR chest 2V* [id number] IMPRESSION: No acute findings.
== END 2021-05-09 14:16 | disposition home or self-care (01) ==
LOC: RAD 14:21
PROVIDERS: PCP Internal Medicine; Visit Provider Internal Medicine
DX: R05.9 Cough, unspecified (principal)
CPT/HCPCS: 71046

== ENCOUNTER 2021-10-17 06:12 | Outpatient (CLI) | payer MEDICAID, SELFPAY ==
--- NOTE | 2021-10-17 06:22 | USCV_ITS ---
Quan Mehta Age: 66 Gender: M : 1955 Exam Date: 10/17/2021 06:26 Ordering Phys: Ivania CohenP Technologist: [place] [facility] [place]: bilat leg pain PROCEDURES: The venous duplex Doppler examination of both lower extremities was performed in the standard fashion. The following venous structures were evaluated: common femoral vein, profunda vein, proximal portion of the greater saphenous vein, superficial femoral vein, and the popliteal vein. In addition, the posterior tibial and peroneal trunk were evaluated. Bilaterally, the common femoral, superficial femoral, profunda femoral, popliteal, posterior tibial, greater saphenous veins, and the peroneal trunk were identified and interrogated in the standard fashion. These veins were found to be easily compressible with spontaneous blood flow. No evidence of insufficiency or thrombus noted. FINDINGS: Normal 2-D Doppler and augmentation and compressibility throughout the lower extremity venous structures. Additional imaging through the proximal calf veins also reveals no thrombus. Limited evaluation of the greater saphenous vein is patent with no thrombus.. CONCLUSIONS No evidence of right lower extremity DVT. No evidence of left lower extremity DVT. Jose Garrett MD (Electronically Signed) Final Date: 17 October 2021 08:34 S
== END 2021-10-17 06:13 | disposition home or self-care (01) ==
LOC: RAD 06:13
PROVIDERS: PCP Internal Medicine; Visit Provider Nurse Practitioner Family
DX: M79.605 Pain in left leg (principal); M79.604 Pain in right leg
CPT/HCPCS: 93970

== ENCOUNTER 2021-11-21 06:00 | Outpatient (RCR) | payer MEDICAID, SELFPAY | END 2021-11-25 23:59 | disposition home or self-care (01) | LOC: TPT 06:00 | PROVIDERS: PCP Internal Medicine; Referring Provider Internal Medicine; Visit Provider Internal Medicine | DX: M54.51 Vertebrogenic low back pain (principal) | CPT/HCPCS: 97110; 97161 ==

== ENCOUNTER 2021-11-26 06:00 | Outpatient (RCR) | payer MEDICAID, SELFPAY | END 2021-12-26 23:59 | disposition home or self-care (01) | LOC: TPT 06:00 | PROVIDERS: PCP Internal Medicine; Visit Provider Internal Medicine | DX: M54.51 Vertebrogenic low back pain (principal); M54.59 Other low back pain | CPT/HCPCS: 97110 ==

== ENCOUNTER 2021-12-17 15:02 | Outpatient (CLI) | payer MEDICAID, SELFPAY ==
--- NOTE | 2021-12-17 15:16 | XRR_ITS ---
PROCEDURE INFORMATION: Exam: XR Lumbosacral Spine Exam date and time: 12/17/2021 3:18 PM Age: 66 years old Clinical indication: Low back pain; Additional info: Lumbar back pain TECHNIQUE: Imaging protocol: Radiologic exam of the lumbosacral spine. Views: 2 or 3 views. COMPARISON: No relevant prior studies available. FINDINGS: Bones/joints: Multilevel moderate to severe disc space narrowing and productive degenerative endplate changes throughout the spine. Soft tissues: Unremarkable. XR/XR lumbar spine f/e only [id number] IMPRESSION: Multilevel moderate to severe disc space narrowing and productive degenerative endplate changes throughout the spine.
== END 2021-12-17 15:03 | disposition home or self-care (01) ==
PROVIDERS: PCP Internal Medicine; Visit Provider Nurse Practitioner Family
DX: M54.50 Low back pain, unspecified (principal)
CPT/HCPCS: 72120

== ENCOUNTER → 2021-12-25 14:03 | Outpatient (BNVA) | payer MEDICAID, SELFPAY | PROVIDERS: PCP Internal Medicine; Visit Provider Physician Assistant | DX: M51.36 Other intervertebral disc degeneration, lumbar region (principal); M47.816 Spondylosis without myelopathy or radiculopathy, lumbar region | CPT/HCPCS: 72020; 99203; 99214 ==

== ENCOUNTER 2021-12-27 06:00 | Outpatient (RCR) | payer MEDICAID, SELFPAY | END 2022-01-10 23:59 | disposition home or self-care (01) | LOC: TPT 06:00 | PROVIDERS: PCP Internal Medicine; Visit Provider Internal Medicine | DX: M54.51 Vertebrogenic low back pain (principal); M54.50 Low back pain, unspecified; G89.29 Other chronic pain | CPT/HCPCS: 97110 ==

== ENCOUNTER 2022-01-09 09:10 | Outpatient (CLI) | payer MEDICAID, SELFPAY ==
--- NOTE | 2022-01-09 10:05 | MR_ITS ---
WS: [id number] MRI LUMBAR SPINE NONCONTRAST TECHNIQUE: Sagittal T1, T2 and STIR imaging. Axial T1 and T2 imaging. CLINICAL INFORMATION: LUMBAR BACK PAIN W/RADICULOPATHY COMPARISON: None. FINDINGS: Mild lumbar curve. Small annular fissure L4-L5. RIGHT pericentral disc extrusion L3-L4 with cranial m igration of disc material posterior to the L3 vertebral body. Disc material measures approximately 8. 0 x 17 mm AP by craniocaudal. This impinges the RIGHT ventral thecal sac with severe central canal st enosis posterior to the L3 vertebral body and L3/L4 disc space. L1-L2: Mild disc bulging with slight effacement of ventral thecal sac. Mild central canal stenosis wi th narrowing of the subarticular recess. Mild RIGHT foraminal narrowing. L2-L3: Mild disc osteophyte complex with endplate ridging. Mild to moderate central canal stenosis. M ild facet arthropathy. Moderate RIGHT and mild LEFT foraminal narrowing. L3-L4: Severe central canal stenosis L3-L4 due to extruded disc material described above. Mild LEFT f oraminal narrowing. Moderate facet arthropathy. L4-L5: Shallow central protrusion with a tiny annular tear. Mild central canal stenosis. Impingement traversing L5 nerve roots bilaterally. Mild LEFT and no significant RIGHT foraminal narrowing. Mild f acet arthropathy. L5-S1: Tiny LEFT pericentral protrusion. Slight impingement on the traversing LEFT S1 nerve root. Mil d facet arthropathy. Foramen are patent. Adrenal glands are normal. Partially visualized LEFT renal cyst. Visualized pelvic bony structures: Normal. Paravertebral soft tissues: Normal. MR/MR lumbar spine wo con* [id number] IMPRESSION: 1. Severe central canal stenosis posterior to the L3 vertebral body extending to the L3-L4 disc space due to L3-L4 RIGHT pericentral disc extrusion with cran ial migration of disc material measuring 8 x 17. Impingement on the traversing RIGHT L3 and L4 nerve roots. 2. Mild central canal stenosis L1-L2 and mild to moderate central canal stenos is L2-L3. 3. Mild central canal stenosis L4-L5 with impingement traversing L5 nerve root s bilaterally. 4. Disc bulge L5-S1 with slight impingement on the LEFT S1 nerve root. 5. Mild to moderate foraminal narrowing worse at RIGHT L2-L3, LEFT L3-L4, LEFT L4-L5, 6. Asymmetric LEFT facet arthropathy LEFT T10-T11 with mild to moderate centra l canal stenosis seen on the artificial breast fabricator imaging. A few small disc protrusions the mi d thoracic spine. This can be further evaluated with thoracic spine MRI. 7. Mild central canal stenosis in the cervical spine artificial breast fabricator imaging at C4-C6.
== END 2022-01-09 09:11 | disposition home or self-care (01) ==
LOC: RAD 09:11
PROVIDERS: PCP Internal Medicine; Visit Provider Nurse Practitioner Family
DX: M54.16 Radiculopathy, lumbar region (principal); M48.061 Spinal stenosis, lumbar region without neurogenic claudication
CPT/HCPCS: 72148

== ENCOUNTER → 2022-01-10 08:29 | Outpatient (BNVA) | payer MEDICAID, SELFPAY | PROVIDERS: PCP Internal Medicine; Visit Provider Physician Assistant | DX: M48.062 Spinal stenosis, lumbar region with neurogenic claudication (principal); M51.26 Other intervertebral disc displacement, lumbar region | CPT/HCPCS: 99214 ==

== ENCOUNTER 2022-02-01 08:34 | Day surgery (SDC) | payer MEDICAID, SELFPAY ==
[2022-01-28 10:24] VITALS: BMI 37.0
--- NOTE | 2022-01-28 10:42 | ECG_ITS ---
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 Measurements Intervals [place] Rate: 71 P: 42 ID: [id number] QRS: 11 QRSD: 102 T: 68 QT: 410 QTc: 448 Interpretive Statements SINUS RHYTHM NONSPECIFIC T-WAVE ABNORMALITY Compared to ECG 04/12/2019 08:19:06 No significant changes Electronically Signed On 01-28-2022 17:43:06 CDT by Vahid Lang M.D. [id number]
[2022-01-28 10:53] LABS: Basophils % 0.6 %; Eosinophils # 0.2 10^3/uL (0.0-0.8); Eosinophils % 2.9 %; Hemoglobin 11.8 g/dL (11.7-16.6); Lymphocytes # 1.7 10^3/uL (0.8-4.8); Lymphocytes % 27.7 %; Mean Corpuscular HGB Conc 31.1 g/dL (30.0-36.0); Mean Corpuscular Hemoglobin 28.3 pg (28.0-34.0); Mean Corpuscular Volume 91.1 fl (80-94); Mean Platelet Volume 10.8 fL (7.4-10.4); Monocytes # 0.5 10^3/uL (0.2-0.9); Monocytes % 7.9 %; Neutrophils # 3.71 10^3/uL (1.8-7.7); Neutrophils % 59.8 %; Nucleated Red Blood Cells % 0 %; Platelet Count 135 10^3/cmm (130-400); Red Blood Count 4.17 10^6/uL (4.1-5.3); Red Cell Distribution Width 16.4 % (12.1-15.1); White Blood Count 6.2 10^3/uL (4.0-10.0)
[2022-01-28 11:08] LABS: Blood Urea Nitrogen 22 mg/dL (8-23); Calcium 9.7 mg/dL (8.5-10.5); Carbon Dioxide 24 mmol/L (22-29); Chloride 101 mmol/L (98-107); Glomerular Filtration Rate 67.4 mL/min (90-130); Glucose 219 mg/dL (65-115); Osmolality Calculated 298 mOsm/kg (285-295); Sodium 139 mmol/L (136-145)
--- NOTE | 2022-01-28 11:10 | P.ANESASSM_ITS ---
Pre-Anesthetic Assessment Height/Weight: Height 1.7 m Weight 107.501 kg Preop Diagnosis: DDD, herniated nucleus pulposus Operation Date: 02/01/22 10:20 Proposed Procedures p RIGHT SIDED MICRO DECOMPRESSION W/DISECTOMY L2/3 L3/4 78529/66312/45020/M48.062/M51.26(Not Applicable) - Singh Hyde, DO Familial anesthetic complications: none Social No alcohol and No tobacco Exam alert, oriented x 3, clear to auscultation bilaterally and regular rate & rhythm Airway Submandibular: within normal limits Cervical ROM: within normal limits Mallampati: Class III Dentition: false Pulmonary Sleep Apnea Denies COPD, asthma Does not use CPAP CV/HEM Coronary Artery Disease and Hypertension Denies MA, arrhythmia, afib Hx of CA stent METS = 4 , able to go up stairs w/o CP but does have SOB TTE 2020 ?CONCLUSIONS ?LV systolic function is normal with EF of 55-60% ?Normal diastolic function ?No significant valvular heart disease is noted ?No comparison studies are available None reported Hepatic None reported GI Gastroesophageal Reflux Disease (Poorly controlled ) and Hiatal Hernia Dysphagia Metabolic Diabetes Mellitus and Hyperlipidemia Obese [facility] Lower Back Pain and Osteoarthritis/DJD TMJ Neuropsych Neuropathy (Traumatic plexopathy) and Seizure Off seizure medications for > 10 years with no seizures in interval Anesthetic Plan ASA status: 3 Anesthesia: Anesthesia Evaluation and General Other: We discussed risk and benefits of general anesthesia including PONV, sore throat (sometimes severe), corneal abrasion, positioning and peripheral nerve injuries, life threatening allergic reaction, post operative ICU admission requiring prolonged intubation, aspiration, blindness, stroke, heart attack, , and rare incidences of recall. Patient consents to proceed with general anesthesia. Pre op medications instructions reviewed with patient. Patient is illiterate and will have his call the day before to discuss instructions. Risk of > 500 ml blood loss (7ml/kg in children): No Medications/Allergies Home Medications Medication Instructions Recorded Confirmed Last Taken Type cholecalciferol (vitamin D3) 1,250 1 mcg PO .2 times weekly 11/29/19 01/10/22 Unknown History mcg (50,000 unit) tablet furosemide 40 mg tablet 40 mg PO DAILY 11/29/19 01/28/22 Unknown History liraglutide 0.6 mg/0.1 mL (18 mg/3 1.2 mg SUBCUT DAILY 11/29/19 01/28/22 Unknown History mL) subcutaneous pen injector (Victoza 2-Kieran) loratadine 10 mg tablet (Allergy 10 mg PO DAILY 11/29/19 01/28/22 Unknown History Relief (loratadine)) metformin 1,000 mg tablet 1,000 mg PO BID 11/29/19 01/28/22 Unknown History omeprazole 40 mg capsule,delayed 40 mg PO BID 11/29/19 01/28/22 Unknown History release atorvastatin 20 mg tablet 20 mg PO DAILY 12/06/20 01/28/22 Unknown History empagliflozin 10 mg tablet 10 mg PO DAILY 12/06/20 01/28/22 Unknown History (Jardiance) fluticasone propionate 50 2 spray intranasal DAILY 12/06/20 01/28/22 Unknown History mcg/actuation nasal spray,suspension (Flonase Allergy Relief) lisinopril 20 mg tablet 20 mg PO DAILY 12/06/20 01/28/22 Unknown History insulin glargine 100 unit/mL (3 unit SUBCUT 01/28/22 Unknown History mL) subcutaneous pen (Lantus Solostar U-100 Insulin) metoprolol tartrate 25 mg tablet 50 mg PO BID 01/28/22 01/28/22 Unknown History Allergies Allergy/AdvReac Type Severity Reaction Status Date / Time nitroglycerin Allergy Unknown Verified 01/28/22 10:13 phenytoin [From Dilantin] Allergy Unknown Verified 01/28/22 10:13 [facility] Anesthesia Medical History Balanitis Diabetes Erectile dysfunction Hyperlipidemia Hypertension Myalgia Phimosis Seizure disorder Surgical History H/O umbilical hernia repair History of colonoscopy Hx of cholecystectomy S/P rotator cuff repair right Family History Mother Diabetes Heart disease Hyperlipidemia Father Heart disease Social History Smoking and tobacco status: never smoked Alcohol intake: never Marital status: Current occupational status: retired History of recent travel: No Data Anesthesia : 01/28/22 10:35 01/28/22 10:35 Short CBC 01/28/22 Range/Units 10:35 WBC 6.2 (4.0-10.0) 10^3/uL Hgb 11.8 (11.7-16.6) g/dL Hct 38.0 L (42.0-52.0) % MCV 91.1 (80-94) fl Plt Count 135 (130-400) 10^3/cmm Neut % (Auto) 59.8 % Neut # (Auto) 3.71 (1.8-7.7) 10^3/uL BMP 01/28/22 10:35 Sodium 139 Potassium 4.0 Chloride 101 Carbon Dioxide 24 BUN 22 Creatinine 1.1 Glucose 219 H Calcium 9.7 Cardiac Studies: Echocardiogram 01/15/21
[2022-02-01] VITALS (20 sets, daily range): BP systolic 107–167; BP diastolic 59–89; PULSE 63–86; RESP 16–18; TEMP 36.2; O2SAT 90–98
--- NOTE | 2022-02-01 | SCC_ITS ---
Procedure: 1. L2/3 laminectomy with partial facetectomy 2. L3/4 laminectomy with partial facetectomy 8.9 seconds of fluoroscopic guidance, for a cumulative dose of 10.3 mGy, was provided to Dr. Hyde by the radiology department. C-arm images of the lumbar spine were saved for the patient's permanent record. [facility]
--- NOTE | 2022-02-01 | XR_ITS ---
WS: [id number] INTRAOPERATIVE TECHNIQUE: 2 Spot fluoroscopic images for intraoperative purposes. FLUOROSCOPY TIME: 2.9 seconds CLINICAL INFORMATION: Right sided microdiscectomy L3-4 w/decomp L2-3 COMPARISON: None. FINDINGS: Marker projected over the L3-L4 interlaminar space. Retractors projected over the L2 vertebral body XR/XR lumbar spine 1V [id number] IMPRESSION: Images obtained for intraoperative purposes.
[2022-02-01] MEDS: sodium chloride 0.9% 1,000 ML 30 ML IV (08:55)
[2022-02-01 09:14] LABS: Glucose Point of Care 160 mg/dL (70-110)
--- NOTE | 2022-02-01 10:10 | P.ANESUD_ITS ---
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, lumbar stenosis with neurogenic claudication Proposed Procedure: Operation Date: 02/01/22 10:20 Proposed Procedures p Bilatateral open micro decompression w/discectomy L2/3 L3/4 [id number]/[id number]/67912/M48.062/M51.26(Not Applicable) - Singh Hyde, DO Any changes to Pre-Anesthetic Assessment?: No Last Intake: Intake Last Liquid Date 01/31/22 Last Liquid Time 23:00 Last Solid Date 01/31/22 Last Solid Time 22:00 Vitals: Temperature 97.1 F L 02/01/22 08:52 Temperature Source Temporal Artery S can 02/01/22 08:52 Pulse Rate 63 02/01/22 08:52 Respiratory Rate 18 02/01/22 08:52 Blood Pressure 167/87 02/01/22 08:52 Blood Pressure Naomi n 113 02/01/22 08:52 Pulse Oximetry 96 02/01/22 08:52 Oxygen Delivery Me thod 02/01/22 08:54 Exam: Pre-Anes Outpt Exam: alert, oriented x 3, clear to auscultation bilaterally and regular rate & rhythm Cardiac Studies: Echocardiogram 01/15/21
--- NOTE | 2022-02-01 10:14 | W.PM.OPSUD ---
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
[2022-02-01] MEDS: ceFAZolin 2,000 MG in sodium chloride 0.9% (plus) 50 ML 100 MG IV (10:41)
[2022-02-01] MEDS: vancomycin 1,000 MG SDV 1000 MG XX (12:13)
--- NOTE | 2022-02-01 13:05 | PM.OP ---
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 L2/3 laminectomy with partial facetectomy 2. L3/4 laminectomy with partial facetectomy Surgeon: Singh Hyde Rotary Rig Engine Operator: Maycol Bal Rotary Rig Engine Operator: The hair or beauty salon assistant, Maycol Bal, PAC was needed for his expertise under the microscope. He was important and necessary throughout the procedure to complete in a safe and timely manner. He assisted with patient positioning prepping and draping tissue retraction suctioning of the operative field protection of the dural sac and tissue closure Estimated blood loss (mL): 20 Procedure: 1. L2/3 laminectomy with partial facetectomy 2. L3/4 laminectomy with partial facetectomy Patient is brought to the operative suite. After undergoing anesthesia they are placed in the prone position. All areas of impingement are well padded. Patient is then prepped and draped in the normal sterile fashion. A skin incision is made over the L2-L4 level. This is confirmed under c-arm guidance. Skin incision is made deep thoracolumbar fascia was split with Bovie subperiosteal dissection was made down to the facets of L1 -2, L2-3, L3-4. A bovie is used to clear the soft tissue off the lamina and the L L2-L3 and L4 facet joint. A high speed taylor is then used to perform the laminectomy and take down the medial aspect of the L 1/2, 2/3, and L3/4 facet joint. A kerrison rongeure was then used to take down the remaining lamina of L3, L2 and smooth the edged of the laminectomy up to the point where the ligamentum flavum attaches. Attention was then brought to the medial aspect of the facet joint. The remaining medial aspect of the superior and inferior aspect of the facet joint were taken down with the kerrison from the pedicle of L2 to L 4. The facet joint had significant hypertrophy. Attention was then brought to the Ligamentum Flavum. The ligament was taken down from the lamina of L2 to L3 and L3-L4 and out medially to the remaining facet joint. The ligament was significantly thickened at both levels. The dura was then exposed. The dura was in good repair. This was done bilaterally the medial aspect of both facet joints were taken down the L3 and L4 nerves were identified. The L3-4 disc space was identified as was the L2-3 disc space. Working between these 2 displaces retracting the nerves the extruded disc fragment was removed. Is mainly behind the L3 body. This is a large calcified disc which was removed. The spaces were irrigated and small fragments removed with a micropituitary. Once the disc was removed all areas of impingement or freed up using a Kerrison and curettes. This was all done under the microscope. Wound is then irrigated copiously with saline and surgiflo is used to stop any bleeding. The tubular retractor is removed and the wound is closed with vicryl and monocryl suture. Glue is then used to protect the wound. A sterile dressing is then placed. Patient was then placed in the supine position and transferred to the PACU in stable condition.
[2022-02-01] MEDS: fentaNYL 50 mcg/mL INJ 2mL 100 MCG IVP (13:07)
[2022-02-01] MEDS: HYDROcodone-acetaminophen 5-325 mg Tablet 1 TAB PO (14:42)
--- NOTE | 2022-02-01 14:58 | SUR.PHASEII ---
Patient came today by ready transportation. Patient has had a pain pill given,states pain currently at 3/10, d/c instructions given to patient and family. Ready transportation will not be available to get patient for D/C until 1630 or 1700. Patient and aware, request something to eat. Sandwiches given to patient and .
--- NOTE | 2022-02-01 15:43 | ANE.PACU2 ---
Inpatient post-anesthesia follow up: Airway intact: Yes Vital signs: Temperature 97.2 F Pulse Rate 80 Respiratory Rate 17 Blood Pressure 122/63 Pulse Oximetry 94 Oxygen Delivery Me thod Room Air Oxygen Flow Rate 6 Fraction of Inspir ed Oxygen Hydration adequate: Yes Nausea and vomiting: No Pain level: 4 Mental status: Baseline
== END 2022-02-01 16:51 | disposition home or self-care (01) ==
PROVIDERS: Anesthesiology; PCP Internal Medicine; Visit Provider Orthopaedic Surgery
PROC: (CPT 63005; principal; 2022-02-01 10:10)
DX: M48.062 Spinal stenosis, lumbar region with neurogenic claudication (principal); G47.30 Sleep apnea, unspecified; I25.10 Atherosclerotic heart disease of native coronary artery without angina pectoris; I10 Essential (primary) hypertension; Z95.5 Presence of coronary angioplasty implant and graft; K21.9 Gastro-esophageal reflux disease without esophagitis; E78.5 Hyperlipidemia, unspecified; E11.9 Type 2 diabetes mellitus without complications; Z79.84 Long term (current) use of oral hypoglycemic drugs; Z79.4 Long term (current) use of insulin
CPT/HCPCS: 63047; 63048; 36416; 72020; 76000; 80048; 82962; 85025; 93005; J0330; J1100; J2250; J2405; J2704; J2710; J3010; J3370; J3490; J7030

== ENCOUNTER → 2022-02-14 11:15 | Outpatient (BNVA) | payer MEDICAID, SELFPAY | PROVIDERS: PCP Internal Medicine; Visit Provider Orthopaedic Surgery | DX: Z47.89 Encounter for other orthopedic aftercare (principal) | CPT/HCPCS: 99024 ==

== ENCOUNTER → 2022-02-21 12:56 | Outpatient (BNVA) | payer MEDICAID, SELFPAY | PROVIDERS: PCP Internal Medicine; Visit Provider Orthopaedic Surgery | DX: Z47.89 Encounter for other orthopedic aftercare (principal) | CPT/HCPCS: 99024 ==

== ENCOUNTER → 2022-02-26 14:37 | Outpatient (BNVA) | payer MEDICAID, SELFPAY | PROVIDERS: PCP Internal Medicine; Visit Provider Orthopaedic Surgery | DX: Z47.89 Encounter for other orthopedic aftercare (principal) | CPT/HCPCS: 99024 ==

== ENCOUNTER → 2022-03-05 14:22 | Outpatient (BNVA) | payer MEDICAID, SELFPAY | PROVIDERS: PCP Internal Medicine; Visit Provider Physician Assistant | DX: Z47.89 Encounter for other orthopedic aftercare (principal) | CPT/HCPCS: 99024 ==

== ENCOUNTER → 2022-03-12 14:02 | Outpatient (BNVA) | payer MEDICAID, SELFPAY | PROVIDERS: PCP Internal Medicine; Visit Provider Physician Assistant | DX: Z47.89 Encounter for other orthopedic aftercare (principal) | CPT/HCPCS: 99024 ==

== ENCOUNTER 2022-03-31 18:45 | Emergency (ER) | payer MEDICAID, SELFPAY ==
[2022-03-31 19:11] VITALS: BP 157/83; PULSE 83; RESP 17; TEMP 36.6; O2SAT 96; BMI 37.5
--- NOTE | 2022-03-31 19:33 | ED_ITS ---
HPI - Headache General: Chief Complaint: Headache Stated Complaint: nose issues? Time Seen by Provider: 03/31/22 19:33 History of Present Illness: 66-year-old male patient comes in today with frontal sinus headache. Patient reports history of prior sinus headaches due to sinus infection. Patient has had sinus surgery in the past. Patient does have diabetes mellitus type 2, chronic back pain, coronary artery disease, hypertension, hyperlipidemia. Patient appears nontoxic. Patient reports he has an appointment with his ENT tomorrow but came in tonight due to headache and difficulty sleeping. Associated symptoms: Deny chest pain or fever(s) Review of Systems Const: Denies: fever(s) Eyes: Denies: change in vision ENMT: Reports: nasal congestion, epistaxis and sinus pain Card: Denies: chest pain Resp: Denies: dyspnea PFSH ED PFSH: Medical History Balanitis Diabetes Erectile dysfunction Hyperlipidemia Hypertension Myalgia Phimosis Seizure disorder Surgical History H/O umbilical hernia repair History of colonoscopy Hx of cholecystectomy S/P rotator cuff repair right Family History Mother Diabetes Heart disease Hyperlipidemia Father Heart disease Social History Smoking and tobacco status: never smoked Alcohol intake: never Marital status: Current occupational status: retired History of recent travel: No Physical Exam Const: COMMON NORMALS: alert HENMT: COMMON NORMALS: normocephalic and TM's normal bilaterally HEAD & SCALP: normocephalic FACE & SINUS: face symmetric and sinus tenderness NOSE: Epistaxis present (Dried blood left naris) TYMPANIC MEMBRANE: TM's normal bilaterally Neck/C-Spine: COMMON NORMALS: no meningeal signs Resp: COMMON NORMALS: normal respiratory effort AUSCULTATION: diminished lung sounds (Bilateral bases) Cardio: COMMON NORMALS: regular rate and regular rhythm RATE: regular rate RHYTHM: regular rhythm Extremity: COMMON NORMALS: no pedal edema Neuro: SENSORIUM/ORIENTATION: Yes alert MENINGEAL SIGNS: Yes no meningeal signs Skin: COMMON NORMALS: turgor normal GENERAL SKIN EXAM: turgor normal Course Vital Signs: Vital signs: Vital Signs Temperature 97.9 F 03/31/22 19:11 Pulse Rate 83 03/31/22 19:11 Respiratory Rate 17 03/31/22 19:11 Blood Pressure 157/83 03/31/22 19:11 Pulse Oximetry 96 03/31/22 19:11 Oxygen Delivery Me thod 03/31/22 19:11 MDM - Headache Medical Decision Making Patient comes in today for complaints of headache and sinus discomfort. On exam patient has some frontal sinus tenderness on palpation. Patient does have some dried blood in the left naris. Bilateral TMs are clear. Posterior pharynx is pink and moist. Lungs are clear to auscultation. Heart rates regular. Vital signs are normal except for some mild elevation of blood pressure at 157. Differential diagnosis includes but not limited to chronic sinusitis, malingering, headache. No focal deficits or serious illness was noted. Patient was treated for his headache with ketorolac 15 mg and 4 mg of morphine. Patient was also given 1 g of ceftriaxone. Steroids were not given due to patient's history of diabetes. Recommend continue use of steroid nasal spray and saline spray. Recommend follow-up with search marketing analyst tomorrow at scheduled appointment. Patient reported understanding and agreed to plan. Discharge Plan Discharge Patient Disposition: Home Clinical Impression: Rhinosinusitis Condition: Stable Prescriptions: New amoxicillin-pot clavulanate 875-125 mg tablet 1 tab PO BID Qty: 20 0RF No Action Victoza 2-Kieran 0.6 mg/0.1 mL (18 mg/3 mL) pen injector 1.2 mg SUBCUT DAILY omeprazole 40 mg capsule,delayed release(DR/EC) 40 mg PO BID cholecalciferol (vitamin D3) 1,250 mcg (50,000 unit) tablet 1 mcg PO .2 times weekly metformin 1,000 mg tablet 1,000 mg PO BID furosemide 40 mg tablet 40 mg PO DAILY loratadine [Allergy Relief (loratadine)] 10 mg tablet 10 mg PO DAILY lisinopril 20 mg tablet 20 mg PO DAILY fluticasone propionate [Flonase Allergy Relief] 50 mcg/actuation spray,suspension 2 spray intranasal DAILY Rx Instructions: administer into each nostril Jardiance 10 mg tablet 10 mg PO DAILY atorvastatin 20 mg tablet 20 mg PO DAILY tramadol 50 mg tablet 50 mg PO TID PRN (Reason: pain) 7 Days Qty: 30 0RF hydrocodone-acetaminophen 5-325 mg tablet 1 - 2 tab PO .Q4-6H 5 Days Qty: 40 0RF insulin glargine [Lantus Solostar U-100 Insulin] 100 unit/mL (3 mL) insulin pen 50 unit SUBCUT DAILY Label Comments: took 1/2 dose metoprolol tartrate 25 mg tablet 50 mg PO BID hydrocodone-acetaminophen 5-325 mg tablet 1 - 2 tab PO .Q4-6H Qty: 40 0RF Discharge Orders: Discharge ED (Routine); Ordered 03/31/22 Ordered By: Inder Carr Referrals: Re Carson MD [Primary Care Provider] - Discharge Diet: Usual diet Discharge Activity: Increase activity as tolerated Patient Instructions: Sinusitis (ED) Activity Restrictions/Additional Instructions: Keep appointment with Dr. Yan for further treatment and evaluation. Take antibiotics as directed. Use saline nasal spray to help clear debris from naris. Avoid picking your nose. Drink plenty of water with medication. Return to ER for new concerns or worsening symptoms. Coding Level of Care Code ED After School Counselor for Karen Montoya
[2022-03-31] MEDS: ketorolac 30 mg/mL INJ 15 MG IM (20:39)
[2022-03-31 20:40] VITALS: RESP 18
[2022-03-31] MEDS: morphine 4 mg/mL SDV 1 mL IM (20:40)
[2022-03-31] MEDS: cefTRIAXone 1,000 MG in lidocaine 1% 2.1 ML 100 MG IM (20:45)
[2022-03-31 21:16] VITALS: PULSE 83; RESP 17; O2SAT 96
== END 2022-03-31 21:00 | disposition home or self-care (01) ==
PROVIDERS: Emergency Provider Nurse Practitioner Family; PCP Internal Medicine
DX: J32.9 Chronic sinusitis, unspecified (principal)
CPT/HCPCS: 96372; 99284; J0696; J1885; J2270

== ENCOUNTER → 2022-04-09 14:26 | Outpatient (BNVA) | payer MEDICAID, SELFPAY | PROVIDERS: PCP Internal Medicine; Visit Provider Physician Assistant | DX: Z98.890 Other specified postprocedural states (principal) | CPT/HCPCS: 99024 ==

== ENCOUNTER 2022-04-14 10:50 | Emergency (ER) | payer MEDICAID, SELFPAY ==
--- NOTE | 2022-04-14 10:51 | XRR_ITS ---
PROCEDURE INFORMATION: Exam: XR Abdomen Exam date and time: 04/14/2022 11:13 AM Age: 66 years old Clinical indication: Constipation TECHNIQUE: Imaging protocol: Radiologic exam of the abdomen. Views: Frontal supine view of the abdomen. 1 View. COMPARISON: CR XR KUB portable [id number] 04/28/2021 10:49 AM FINDINGS: Gastrointestinal tract: Normal. No bowel dilation. Bones/joints: Unremarkable. XR/XR KUB [id number] IMPRESSION: No acute findings.
[2022-04-14 11:07] VITALS: BP 148/83; PULSE 76; RESP 16; TEMP 36.4; O2SAT 97
--- NOTE | 2022-04-14 11:14 | ED_ITS ---
HPI - Abdominal Pain General: Chief Complaint: Abdominal Pain Stated Complaint: constipation Time Seen by Provider: 04/14/22 11:11 Source: patient Mode of arrival: ambulatory Limitations: no limitations History of Present Illness: 66-year-old male states that he has not had a bowel movement in 3 to 4 days. He states that he is having some bloating and will some lower abdominal pain its been cramping in nature rates his pain a 2 out of 10 denies any fever denies any worsening proving factors he has not tried any laxatives. Associated Symptoms: Reports constipation; Denies chills, dysuria and fever(s) Review of Systems Const: Denies: fever(s), chills, body aches or change in appetite Eyes: Denies: blurry vision or eye discomfort ENMT: Denies: throat pain or dental pain Card: Denies: chest pain Resp: Denies: dyspnea GI: Reports: abdominal pain and constipation : Denies: dysuria Musc: Denies: neck pain or back pain Skin/Breast: Denies: rash Neuro: Denies: headache(s) Psych: Denies: depression Reji/Lymph: Denies: easy bruising All/Imm: Denies: urticaria PFSH ED PFSH: Medical History Balanitis Diabetes Erectile dysfunction Hyperlipidemia Hypertension Myalgia Phimosis Seizure disorder Surgical History H/O umbilical hernia repair History of colonoscopy Hx of cholecystectomy S/P rotator cuff repair right Family History Mother Diabetes Heart disease Hyperlipidemia Father Heart disease Social History Smoking and tobacco status: never smoked Alcohol intake: never Marital status: Current occupational status: retired History of recent travel: No Physical Exam Const: COMMON NORMALS: no acute distress, patient oriented x3 and healthy appearing HENMT: COMMON NORMALS: normocephalic and atraumatic HEAD & SCALP: normocephalic and atraumatic Eye: COMMON NORMALS: Equal, round and reactive pupils present and EOMs intact bilaterally PUPIL: Yes Equal, round and reactive pupils present Neck/C-Spine: COMMON NORMALS: full ROM and supple Chest: COMMONS NORMALS: normal inspection of the chest and normal palpation of entire chest wall Resp: COMMON NORMALS: normal respiratory effort, No retractions, No use of accessory muscles and clear to auscultation bilaterally AUSCULTATION: clear to auscultation bilaterally Cardio: COMMON NORMALS: regular rate, regular rhythm and No murmurs present (Cardio) RATE: regular rate RHYTHM: regular rhythm GI: COMMON NORMALS: Normal to inspection, nondistended, normoactive bowel sounds present, Soft to palpation, non-tender and no masses PALPATION: Yes Soft to palpation Extremity: COMMON NORMALS: normal to inspection and full ROM Neuro: COMMON NORMALS: patient oriented x3, moves all extremities and no focal motor deficits Psych: COMMON NORMALS: mental status grossly normal, Normal thought process present and cooperative THOUGHT PROCESS: Normal thought process present Skin: COMMON NORMALS: no rashes or lesions noted and no wounds GENERAL SKIN EXAM: no rashes or lesions noted Course Vital Signs: Vital signs: Vital Signs Temperature 97.5 F L 04/14/22 11:07 Pulse Rate 66 04/14/22 14:00 Respiratory Rate 16 04/14/22 14:00 Blood Pressure 115/65 04/14/22 14:00 Pulse Oximetry 97 04/14/22 14:00 MDM - Abdominal Pain Medical Decision Making Patient presents here with constipation and abdominal exam is benign blood work is normal no signs of obstruction he had a bowel movement here after lactulose we will prescribe him MiraLAX for home he stable for discharge return if wor sening. Patient did have a vagal event here while straining to defecate his blood pressure did drop and he became diaphoretic sweaty patient given a liter of fluid his blood pressure is normalized he feels improved no signs of cardiac cause EKG and troponin are normal Lab Data 04/14/22 11:40 04/14/22 11:40 Labs/Radiology: Radiology Impressions KUB X-Ray 04/14/22 10:51 IMPRESSION: No acute findings. Chest X-Ray 04/14/22 13:10 IMPRESSION: No acute findings. Metallic arthroplasty right shoulder Laboratory Results WBC 7.1 10^3/uL (4.0-10.0) 04/14/22 11:40 RBC 4.65 10^6/uL (4.1-5.3) 04/14/22 11:40 Hgb 11.9 g/dL (11.7-16.6) 04/14/22 11:40 Hct 39.0 % (42.0-52.0) L 04/14/22 11:40 MCV 83.9 fl (80-94) 04/14/22 11:40 MCH 25.6 pg (28.0-34.0) L 04/14/22 11:40 MCHC 30.5 g/dL (30.0-36.0) 04/14/22 11:40 RDW 16.3 % (12.1-15.1) H 04/14/22 11:40 Plt Count 173 10^3/cmm (130-400) 04/14/22 11:40 MPV 10.5 fL (7.4-10.4) H 04/14/22 11:40 Neut % (Auto) 62.6 % 04/14/22 11:40 Lymph % (Auto) 25.5 % 04/14/22 11:40 [place] % (Auto) 6.3 % 04/14/22 11:40 Eos % (Auto) 4.2 % 04/14/22 11:40 Baso % (Auto) 0.7 % 04/14/22 11:40 Neut # (Auto) 4.45 10^3/uL (1.8-7.7) 04/14/22 11:40 Lymph # (Auto) 1.8 10^3/uL (0.8-4.8) 04/14/22 11:40 [place] # (Auto) 0.5 10^3/uL (0.2-0.9) 04/14/22 11:40 Eos # (Auto) 0.3 10^3/uL (0.0-0.8) 04/14/22 11:40 Baso # (Auto) 0.1 10^3/uL (0.0-0.1) 04/14/22 11:40 Nucleated RBC % (auto) 0 % 04/14/22 11:40 Nucleated RBCs # 0.0 /100WBC 04/14/22 11:40 Sodium 137 mmol/L (136-145) 04/14/22 11:40 Potassium 4.3 mmol/L (3.5-5.1) 04/14/22 11:40 Chloride 97 mmol/L (98-107) L 04/14/22 11:40 Carbon Dioxide 27 mmol/L (22-29) 04/14/22 11:40 Anion Gap 17.3 (5-19) 04/14/22 11:40 BUN 15 mg/dL (8-23) 04/14/22 11:40 Creatinine 1.1 mg/dL (0.7-1.2) 04/14/22 11:40 GFR Calculation 67.4 mL/min (90-130) L 04/14/22 11:40 Glucose 206 mg/dL (65-115) H 04/14/22 11:40 Calculated Osmolality 291 mOsm/kg (285-295) 04/14/22 11:40 Calcium 10.1 mg/dL (8.5-10.5) 04/14/22 11:40 Total Bilirubin 0.5 mg/dL (0.15-1.2) 04/14/22 11:40 AST 39 U/L (0-40) 04/14/22 11:40 ALT 32 U/L (0-41) 04/14/22 11:40 Alkaline Phosphatase 109 U/L (40-130) 04/14/22 11:40 Troponin T Baseline 27 ng/L (0-15) H 04/14/22 11:40 Troponin T 120 Minute 23.07 ng/L (0-15) H 04/14/22 14:00 Delta Troponin T -3.93 ABS# (0-10) L 04/14/22 14:00 Total Protein 7.9 g/dL (6.6-8.7) 04/14/22 11:40 Albumin 4.4 g/dL (3.5-5.2) 04/14/22 11:40 Globulin 3.5 g/dL (1.3-4.6) 04/14/22 11:40 Lipase 83 U/L (13-60) H 04/14/22 11:40 EKG Data EKG 1: I personally reviewed and interpreted this EKG as follows: EKG interpretation date: 04/14/22 EKG interpretation time: 12:42 Interpretation: nsr hr [address] or t wave abnormalities qrs 102 qtc 447 Discharge Plan Discharge Patient Disposition: Home Clinical Impression: Constipation Condition: Stable Prescriptions: New Miralax 17 gram powder in packet 17 g PO BID PRN (Reason: constipation) Qty: 14 0RF No Action Victoza 2-Kieran 0.6 mg/0.1 mL (18 mg/3 mL) pen injector 1.2 mg SUBCUT DAILY omeprazole 40 mg capsule,delayed release(DR/EC) 40 mg PO BID cholecalciferol (vitamin D3) 1,250 mcg (50,000 unit) tablet 1 mcg PO .2 times weekly metformin 1,000 mg tablet 1,000 mg PO BID furosemide 40 mg tablet 40 mg PO DAILY loratadine [Allergy Relief (loratadine)] 10 mg tablet 10 mg PO DAILY lisinopril 20 mg tablet 20 mg PO DAILY fluticasone propionate [Flonase Allergy Relief] 50 mcg/actuation spray,suspension 2 spray intranasal DAILY Rx Instructions: administer into each nostril Jardiance 10 mg tablet 10 mg PO DAILY atorvastatin 20 mg tablet 20 mg PO DAILY tramadol 50 mg tablet 50 mg PO TID PRN (Reason: pain) 7 Days Qty: 30 0RF hydrocodone-acetaminophen 5-325 mg tablet 1 - 2 tab PO .Q4-6H 5 Days Qty: 40 0RF insulin glargine [Lantus Solostar U-100 Insulin] 100 unit/mL (3 mL) insulin pen 50 unit SUBCUT DAILY Label Comments: took 1/2 dose metoprolol tartrate 25 mg tablet 50 mg PO BID hydrocodone-acetaminophen 5-325 mg tablet 1 - 2 tab PO .Q4-6H Qty: 40 0RF amoxicillin-pot clavulanate 875-125 mg tablet 1 tab PO BID Qty: 20 0RF Discharge Orders: Discharge ED (Routine); Ordered 04/14/22 Ordered By: Domenico Person Referrals: Re Carson MD [Primary Care Provider] - 1-3 days Discharge Diet: Advance as tolerated Discharge Activity: Resume usual activity Patient Instructions: Constipation (ED) Coding Level of Care Code ED Gastroenterology Professor for Chg Fwd Exam Comprehensive
[2022-04-14] MEDS: lactulose oral liq 20 gm/30 mL UDC 30 GM PO (11:43)
[2022-04-14 11:46] LABS: Basophils # 0.1 10^3/uL (0.0-0.1); Basophils % 0.7 %; Eosinophils # 0.3 10^3/uL (0.0-0.8); Eosinophils % 4.2 %; Hemoglobin 11.9 g/dL (11.7-16.6); Lymphocytes # 1.8 10^3/uL (0.8-4.8); Lymphocytes % 25.5 %; Mean Corpuscular HGB Conc 30.5 g/dL (30.0-36.0); Mean Corpuscular Hemoglobin 25.6 pg (28.0-34.0); Mean Corpuscular Volume 83.9 fl (80-94); Mean Platelet Volume 10.5 fL (7.4-10.4); Monocytes # 0.5 10^3/uL (0.2-0.9); Monocytes % 6.3 %; Neutrophils # 4.45 10^3/uL (1.8-7.7); Neutrophils % 62.6 %; Nucleated Red Blood Cells % 0 %; Platelet Count 173 10^3/cmm (130-400); Red Blood Count 4.65 10^6/uL (4.1-5.3); Red Cell Distribution Width 16.3 % (12.1-15.1); White Blood Count 7.1 10^3/uL (4.0-10.0)
[2022-04-14 11:48] VITALS: BP 130/75; PULSE 81; RESP 18; O2SAT 95
[2022-04-14 12:03] LABS: Alanine Aminotransferase 32 U/L (0-41); Albumin Level 4.4 g/dL (3.5-5.2); Alkaline Phosphatase 109 U/L (40-130); Anion Gap 17.3 (5-19); Aspartate Amino Transferase 39 U/L (0-40); Blood Urea Nitrogen 15 mg/dL (8-23); Calcium 10.1 mg/dL (8.5-10.5); Carbon Dioxide 27 mmol/L (22-29); Chloride 97 mmol/L (98-107); Globulin 3.5 g/dL (1.3-4.6); Glomerular Filtration Rate 67.4 mL/min (90-130); Glucose 206 mg/dL (65-115); Lipase 83 U/L (13-60); Osmolality Calculated 291 mOsm/kg (285-295); Potassium 4.3 mmol/L (3.5-5.1); Sodium 137 mmol/L (136-145); Total Bilirubin 0.5 mg/dL (0.15-1.2); Total Protein 7.9 g/dL (6.6-8.7)
[2022-04-14] MEDS: ondansetron 4 MG Tablet PO (12:36)
--- NOTE | 2022-04-14 12:42 | ECG_ITS ---
[facility] Test Date: 2022-04-14 Pat Name: Quan Mehta Department: Room: Gender: Male Product Controller: : 1955 Requested By: Domenico Person Order Number: [id number] Reading MD: Amaury Schmid Measurements Intervals [place] Rate: 76 P: 32 [place]: 131 QRS: -2 QRSD: 102 T: 94 QT: 417 QTc: 470 Interpretive Statements SINUS RHYTHM NONSPECIFIC ST & T-WAVE ABNORMALITY Compared to ECG 01/28/2022 10:42:29 No significant changes Electronically Signed On 04-14-2022 15:02:22 CAKE INSPECTOR by Amaury Schmid [id number]
[2022-04-14 13:00] VITALS: BP 89/56; PULSE 70; RESP 18; O2SAT 93
--- NOTE | 2022-04-14 13:10 | XRR_ITS ---
PROCEDURE INFORMATION: Exam: XR Chest Exam date and time: 04/14/2022 1:21 PM Age: 66 years old Clinical indication: Pain; Chest pressure; Additional info: Abd pain TECHNIQUE: Imaging protocol: Radiologic exam of the chest. Views: 1 view. COMPARISON: CR XR chest 2V* [id number] 05/09/2021 2:39 PM FINDINGS: Lungs: Unremarkable. No consolidation. Pleural spaces: Unremarkable. No pleural effusion. No pneumothorax. Heart/Mediastinum: Unremarkable. No cardiomegaly. Bones/joints: Metallic arthroplasty right shoulder incompletely visible XR/XR chest 1V portable [id number] IMPRESSION: No acute findings. Metallic arthroplasty right shoulder
[2022-04-14] MEDS: sodium chloride 0.9% 1,000 ML 999 ML IV (13:22)
[2022-04-14 13:26] LABS: Troponin(5th) Baseline 27 ng/L (0-15)
[2022-04-14 14:00] VITALS: BP 115/65; PULSE 66; RESP 16; O2SAT 97
[2022-04-14 14:46] LABS: Troponin 5 2HR 23.07 ng/L (0-15)
[2022-04-14 14:58] LABS: Troponin 5 2HR Delta -3.93 ABS# (0-10)
--- NOTE | 2022-04-14 15:04 | ECG_ITS ---
[facility] Test Date: 2022-04-14 Pat Name: Quan Mehta Department: Room: Gender: Male Magistrate Assistant: : 1955 Requested By: Domenico Person Order Number: [id number] Reading MD: Amaury Schmid Measurements Intervals [place] Rate: 70 P: 41 DE: 128 QRS: 1 QRSD: 95 T: 105 QT: 410 QTc: 445 Interpretive Statements SINUS RHYTHM NONSPECIFIC T-WAVE ABNORMALITY Compared to ECG 04/14/2022 12:42:27 No significant changes Electronically Signed On 04-14-2022 15:34:14 PERSHING MISSILE CREWMEMBER by Amaury Schmid [id number]
[2022-04-14 15:46] VITALS: BP 148/79; PULSE 73; RESP 16; O2SAT 97
== END 2022-04-14 15:39 | disposition home or self-care (01) ==
PROVIDERS: Emergency Provider Emergency Medicine; PCP Internal Medicine
DX: K59.00 Constipation, unspecified (principal); Z79.84 Long term (current) use of oral hypoglycemic drugs; Z79.4 Long term (current) use of insulin; E11.9 Type 2 diabetes mellitus without complications; E78.5 Hyperlipidemia, unspecified; I10 Essential (primary) hypertension
CPT/HCPCS: 36415; 71045; 74018; 80053; 83690; 84484; 85025; 93005; 96360; 99285; J7030; Q0162

== ENCOUNTER 2022-04-26 07:32 | Outpatient (CLI) | payer MEDICAID, SELFPAY ==
--- NOTE | 2022-04-26 07:39 | CT_ITS ---
WS: [id number] CT FACIAL BONES TECHNIQUE: Noncontrast facial bones with coronal and sagittal reformatted images. CLINICAL INFORMATION: CHRONIC SINUSITIS COMPARISON: None. DLP: 606.[address] scans at [facility] use at least one of these dose optimization techniques: automated e xposure control; mA and/or kV adjustment per patient size (includes targeted exams where dose is matc hed to clinical indication); or iterative reconstruction. FINDINGS: Mild RIGHT to LEFT nasal septal deviation measuring 4 mm. Anterior nasal septal perforation measuring 15 x 14 mm AP by craniocaudal. Paranasal sinuses are well aerated. Mild narrowing of the ostiomeatal units bilaterally. Maxillary sinuses, ethmoid air cells, and frontal sinuses are well aerated. Norm al sphenoid sinuses. Mastoid air cells are well aerated. Normal parapharyngeal fat. Normal posterior nasopharynx. Mild pannus formation C1-C2 articulation. Mild spondylitic changes partially visualized in the cervic al spine. Mild central canal stenosis partially visualized in the cervical spine. Normal mandibular c ondyles. CT/CT facial bones wo con* [id number] IMPRESSION: 1. Anterior nasal septal perforation measuring 15 x 14 mm AP by craniocaudal. 2. Mild nasal deviation RIGHT to LEFT measuring 4 mm. 3. Paranasal sinuses are well aerated. Ostiomeatal units are patent. 4. Mastoid air cells are well aerated. Normal posterior nasopharynx. 5. Mild pansinus C1-C2 articulation. Mild central canal stenosis partially vis ualized in the cervical spine.
== END 2022-04-26 07:33 | disposition home or self-care (01) ==
LOC: RAD 07:32
PROVIDERS: PCP Internal Medicine; Visit Provider Nurse Practitioner Family
DX: J32.9 Chronic sinusitis, unspecified (principal); J34.89 Other specified disorders of nose and nasal sinuses; M48.02 Spinal stenosis, cervical region
CPT/HCPCS: 70486

== ENCOUNTER → 2022-05-06 08:10 | Outpatient (BNVA) | payer MEDICAID, SELFPAY | PROVIDERS: PCP Internal Medicine; Visit Provider Podiatrist Foot & Ankle Surgery | DX: E11.9 Type 2 diabetes mellitus without complications (principal); B35.1 Tinea unguium; L85.3 Xerosis cutis; Z79.84 Long term (current) use of oral hypoglycemic drugs; Z79.4 Long term (current) use of insulin | CPT/HCPCS: 11720; 99203 ==

== ENCOUNTER 2022-06-28 18:43 | Emergency (ER) | payer MEDICARE, MEDICAID, SELFPAY ==
[2022-06-28 18:52] VITALS: BP 155/77; PULSE 110; RESP 18; TEMP 36.7; O2SAT 92
--- NOTE | 2022-06-28 20:54 | ED_ITS ---
HPI - General Adult General: Chief complaint: Airway/Esophagus Foreign Body Stated complaint: Nasal Surgery, difficulty breathing Time Seen by Provider: 06/28/22 20:32 History of Present Illness: 67-year-old male patient comes in today with concerns of not tolerating his antibiotic due to increased abdominal pain after using it, nasal bleeding, and the sensation of swallowing a foreign body. Patient appears nontoxic. Patient recently had nasal surgery on Friday. Patient reports this evening he was sitting at home he felt something go down the back of his throat. Patient reports that he has had no other symptoms and is otherwise acting normal. Patient does complain that he is not able to tolerate the antibiotic he was prescribed due to abdominal pain. His last dose of antibiotic was this morning. Review of Systems General: Reports: 10 or more systems reviewed and unremarkable except in HPI and below Const: Denies: fever(s) ENMT: Reports: nasal discharge GI: Reports: abdominal pain PFSH ED PFSH: Medical History Balanitis Diabetes Erectile dysfunction Hyperlipidemia Hypertension Myalgia Phimosis Seizure disorder Surgical History H/O umbilical hernia repair History of colonoscopy Hx of cholecystectomy S/P rotator cuff repair right Family History Mother Diabetes Heart disease Hyperlipidemia Father Heart disease Social History Smoking and tobacco status: never smoked Alcohol intake: never Marital status: Current occupational status: retired Physical Exam Const: COMMON NORMALS: alert HENMT: NOSE: Nasal discharge present; no Epistaxis present THROAT: posterior oropharynx normal Resp: COMMON NORMALS: normal respiratory effort and clear to auscultation bilaterally AUSCULTATION: clear to auscultation bilaterally Cardio: COMMON NORMALS: regular rate and regular rhythm RATE: regular rate RHYTHM: regular rhythm Extremity: COMMON NORMALS: no pedal edema Neuro: SENSORIUM/ORIENTATION: Yes alert Skin: COMMON NORMALS: turgor normal GENERAL SKIN EXAM: turgor normal Course Vital Signs: Vital signs: Vital Signs Temperature 98.0 F 06/28/22 18:52 Pulse Rate 110 H 06/28/22 18:52 Respiratory Rate 18 06/28/22 18:52 Blood Pressure 155/77 06/28/22 18:52 Pulse Oximetry 92 06/28/22 18:52 Oxygen Delivery Me thod 06/28/22 18:52 MDM - General Adult Medical Decision Making 67-year-old male patient comes in today for concerns status post sinus surgery. On exam posterior pharynx is pink and moist with some mild drainage. Bilateral nares notes did nasal congestion. No bleeding is noted in the nose or in the posterior pharynx. Lungs are clear to auscultation. Abdomen soft nontender. Differential diagnosis includes but not limited to postnasal drip, epistaxis, adverse drug effect. Believe the patient probably lost a clot secondary to his surgery and swallowed it. We will switch patient from Augmentin to cefdinir for better tolerance of medication. Recommended patient follow-up with ENT at next scheduled appointment. Recommend return to the ER for high fever or uncontrolled nasal bleeding. Patient and family both reported understanding. Discharge Plan Discharge Patient Disposition: Home Clinical Impression: Nasal congestion, Hx of epistaxis Adverse drug effect Qualifiers: Encounter type: initial encounter Qualified Code(s): T50.905A - Adverse effect of unspecified drugs, medicaments and biological substances, initial encounter Condition: Stable Prescriptions: New cefdinir 300 mg capsule 300 mg PO BID 7 Days Qty: 14 0RF No Action Victoza 2-Kieran 0.6 mg/0.1 mL (18 mg/3 mL) pen injector 1.2 mg SUBCUT DAILY omeprazole 40 mg capsule,delayed release(DR/EC) 40 mg PO BID cholecalciferol (vitamin D3) 1,250 mcg (50,000 unit) tablet 1 mcg PO .2 times weekly metformin 1,000 mg tablet 1,000 mg PO BID furosemide 40 mg tablet 40 mg PO DAILY loratadine [Allergy Relief (loratadine)] 10 mg tablet 10 mg PO DAILY lisinopril 20 mg tablet 20 mg PO DAILY fluticasone propionate [Flonase Allergy Relief] 50 mcg/actuation spray,suspension 2 spray intranasal DAILY Rx Instructions: administer into each nostril Jardiance 10 mg tablet 10 mg PO DAILY atorvastatin 20 mg tablet 20 mg PO DAILY tramadol 50 mg tablet 50 mg PO TID PRN (Reason: pain) 7 Days Qty: 30 0RF hydrocodone-acetaminophen 5-325 mg tablet 1 - 2 tab PO .Q4-6H 5 Days Qty: 40 0RF insulin glargine [Lantus Solostar U-100 Insulin] 100 unit/mL (3 mL) insulin pen 50 unit SUBCUT DAILY Label Comments: took 1/2 dose metoprolol tartrate 25 mg tablet 50 mg PO BID hydrocodone-acetaminophen 5-325 mg tablet 1 - 2 tab PO .Q4-6H Qty: 40 0RF amoxicillin-pot clavulanate 875-125 mg tablet 1 tab PO BID Qty: 20 0RF Miralax 17 gram powder in packet 17 g PO BID PRN (Reason: constipation) Qty: 14 0RF Discharge Orders: Discharge ED (Routine); Ordered 06/28/22 Ordered By: Inder Carr Referrals: Re Carson MD [Primary Care Provider] - Discharge Diet: Usual diet Discharge Activity: Increase activity as tolerated Patient Instructions: Epistaxis - Adult Activity Restrictions/Additional Instructions: Continue with present plan from ear nose and throat surgeon. Stop amoxicillin and use cefdinir instead. Drink plenty of water and fluids with medications. Follow-up with primary care as needed. Return to ED for worsening symptoms such as uncontrolled nasal bleeding, fever greater than 100.4, or severe pain. Coding Level of Care Code ED Legal Office Administrator for Karen Montoya
[2022-06-28] MEDS: cefdinir 300 MG CAPSULE PO (21:07)
[2022-06-28 21:08] VITALS: BP 138/88; PULSE 103; RESP 20; O2SAT 97
== END 2022-06-28 21:22 | disposition home or self-care (01) ==
PROVIDERS: Emergency Provider Nurse Practitioner Family; PCP Internal Medicine
DX: T88.7XXA Unspecified adverse effect of drug or medicament, initial encounter (principal); T36.95XA Adverse effect of unspecified systemic antibiotic, initial encounter; R09.81 Nasal congestion; Z79.84 Long term (current) use of oral hypoglycemic drugs; Z79.4 Long term (current) use of insulin; E11.9 Type 2 diabetes mellitus without complications; E78.5 Hyperlipidemia, unspecified; I10 Essential (primary) hypertension
CPT/HCPCS: 99283

== ENCOUNTER → 2022-07-15 09:53 | Outpatient (BNVA) | payer MEDICARE, MEDICAID, SELFPAY | PROVIDERS: PCP Internal Medicine; Visit Provider Podiatrist Foot & Ankle Surgery | DX: E11.9 Type 2 diabetes mellitus without complications (principal); B35.1 Tinea unguium; Z79.84 Long term (current) use of oral hypoglycemic drugs; Z79.4 Long term (current) use of insulin | CPT/HCPCS: 99213 ==

== ENCOUNTER 2022-08-26 06:00 | Outpatient (RCR) | payer MEDICARE, MEDICAID, SELFPAY | END 2022-09-25 23:59 | disposition home or self-care (01) | LOC: TPT 06:00 | PROVIDERS: PCP Internal Medicine; Visit Provider Internal Medicine | DX: M25.511 Pain in right shoulder (principal) | CPT/HCPCS: 97110; 97140; 97163 ==

== ENCOUNTER → 2022-09-10 15:42 | Outpatient (BNVA) | payer MEDICARE, MEDICAID, SELFPAY | PROVIDERS: PCP Internal Medicine; Visit Provider Otolaryngology | DX: J34.89 Other specified disorders of nose and nasal sinuses (principal); K13.79 Other lesions of oral mucosa; R05.3 Chronic cough | CPT/HCPCS: 99213; 99214 ==

== ENCOUNTER 2022-09-26 06:00 | Outpatient (RCR) | payer MEDICARE, MEDICAID, SELFPAY | END 2022-10-25 23:59 | disposition home or self-care (01) | LOC: TPT 06:00 | PROVIDERS: PCP Internal Medicine; Visit Provider Internal Medicine | DX: M25.511 Pain in right shoulder (principal) | CPT/HCPCS: 97110; 97140 ==

== ENCOUNTER 2022-10-26 06:00 | Outpatient (RCR) | payer MEDICARE, MEDICAID, SELFPAY | END 2022-11-06 23:59 | disposition home or self-care (01) | LOC: TPT 06:00 | PROVIDERS: PCP Internal Medicine; Visit Provider Internal Medicine | DX: M25.511 Pain in right shoulder (principal) | CPT/HCPCS: 97110; 97140 ==

== ENCOUNTER → 2022-11-05 10:55 | Outpatient (BNVA) | payer MEDICARE, MEDICAID, SELFPAY | PROVIDERS: PCP Internal Medicine; Visit Provider Otolaryngology | DX: K13.79 Other lesions of oral mucosa (principal) | CPT/HCPCS: 99214; 99215 ==

== ENCOUNTER 2022-11-14 05:55 | Day surgery (SDC) | payer MEDICARE, MEDICAID, SELFPAY ==
[2022-11-14] VITALS (10 sets, daily range): BP systolic 113–143; BP diastolic 59–90; PULSE 67–95; RESP 16–18; TEMP 36.2–36.9; O2SAT 95–97; BMI 36.0
[2022-11-14] MEDS: sodium chloride 0.9% 1,000 ML 30 ML IV (06:40)
[2022-11-14 06:46] LABS: Glucose Point of Care 161 mg/dL (70-110)
--- NOTE | 2022-11-14 07:46 | W.PM.OPSUD ---
Surgery/Procedure H&P Update DATE OF PROCEDURE: November 14, 2022 DATE H&P PERFORMED: 11/05/22 H&P UPDATE INFORMATION: I have reviewed H&P completed within last 30 days, I have examined patient prior to procedure and No changes to prior documentation CHANGES TO PREVIOUS DOCUMENTATION: No changes PREOP DIAGNOSIS: Hypertrophic uvula/chronic cough PRIMARY INDICATION FOR PROCEDURE: Hypertrophic uvula with chronic clearing and coughing PLANNED PROCEDURE: Operation Date: 11/14/22 08:45 Proposed Procedures p Uvulectomy 79877,K13.79(Not Applicable) - Abner Booth MD
--- NOTE | 2022-11-14 08:11 | P.ANESASSM_ITS ---
Pre-Anesthetic Assessment Height/Weight: Height 1.7 m Weight 104.326 kg Temp Pulse Resp BP Pulse Ox O2 Del Method 98.4 F 67 18 143/90 95 Room Air 11/14/22 06:33 11/14/22 06:33 11/14/22 06:33 11/14/22 06:33 11/14/22 06:33 11/14/22 06:35 Preop Diagnosis: Hypertrophic uvula/chronic cough Operation Date: 11/14/22 08:45 Proposed Procedures p Uvulectomy 39187,K13.79(Not Applicable) - Abner Booth MD Familial anesthetic complications: none Was Beta Arielle taken within 24 hours: Yes Was Clonidine taken within 24 hours: N/A Last intake: Intake Last Liquid Date 11/13/22 Last Liquid Time 19:00 Last Solid Date 11/13/22 Last Solid Time 18:00 Social No alcohol and No tobacco Exam alert, oriented x 3 and regular rate & rhythm Airway Submandibular: within normal limits Cervical ROM: within normal limits Mallampati: Class III Dentition: false Pulmonary Chronic Obstructive Pulmonary Disease CV/HEM Coronary Artery Disease (stent) and Hypertension GI Gastroesophageal Reflux Disease Metabolic Diabetes Mellitus, Hyperlipidemia and Morbid Obesity Musc/skel Lower Back Pain and Osteoarthritis/DJD Neuropsych Neuropathy Anesthetic Plan ASA status: 3 Anesthesia: General Medications/Allergies Home Medications Medication Instructions Recorded Confirmed Last Taken Type cholecalciferol (vitamin D3) 1,250 25 mcg PO .2 times weekly 11/29/19 11/14/22 11/06/22 History mcg (50,000 unit) tablet furosemide 40 mg tablet 40 mg PO DAILY 11/29/19 11/14/22 11/06/22 History liraglutide 0.6 mg/0.1 mL (18 mg/3 1.2 mg SUBCUT DAILY 11/29/19 11/14/22 11/05/22 History mL) subcutaneous pen injector ([employer] Customstoza 2-Kieran) loratadine 10 mg tablet (Allergy 10 mg PO DAILY 11/29/19 11/14/22 11/06/22 History Relief (loratadine)) metformin 1,000 mg tablet 1,000 mg PO BID 11/29/19 11/14/22 11/06/22 History omeprazole 40 mg capsule,delayed 40 mg PO BID 11/29/19 11/14/22 11/06/22 History release atorvastatin 20 mg tablet 20 mg PO DAILY 12/06/20 11/14/22 11/06/22 History empagliflozin 10 mg tablet 25 mg PO DAILY 12/06/20 11/14/22 11/06/22 History (Jardiance) fluticasone propionate 50 2 spray intranasal TID PRN 12/06/20 11/14/22 Unknown History mcg/actuation nasal Congestion spray,suspension (Flonase Allergy Relief) lisinopril 20 mg tablet 20 mg PO DAILY 12/06/20 11/14/22 11/06/22 History insulin glargine 100 unit/mL (3 56 unit SUBCUT DAILY 01/28/22 11/14/22 11/05/22 History mL) subcutaneous pen (Lantus Solostar U-100 Insulin) glucosamine sulfate 750 mg tablet 1,500 mg PO DAILY 11/14/22 11/14/22 Unknown History metoprolol tartrate 50 mg tablet 50 mg PO BID 11/14/22 11/14/22 11/14/22 History multivitamin 1 tab PO DAILY 11/14/22 11/14/22 Unknown History Allergies Allergy/AdvReac Type Severity Reaction Status Date / Time nitroglycerin Allergy Unknown Verified 11/14/22 06:13 phenytoin [From Dilantin] Allergy Unknown Verified 11/14/22 06:13 Current Medications Generic Name Dose Route Start Last Admin Trade Name Freq PRN Reason Stop Dose Admin Sodium Chloride 1,000 mls @ 30 mls/hr 11/14/22 06:15 11/14/22 06:40 Sodium Chloride 0.9% IV 11/15/22 06:14 30 mls/hr .Q24H YULIANA Administration PFSH Anesthesia Medical History Balanitis Diabetes Erectile dysfunction Hyperlipidemia Hypertension Myalgia Phimosis Seizure disorder Surgical History H/O umbilical hernia repair History of colonoscopy History of nasal surgery septoplasty Hx of cholecystectomy S/P rotator cuff repair right Family History Mother Diabetes Heart disease Hyperlipidemia Father Heart disease Social History Alcohol intake: never Marital status: Current occupational status: retired Data Anesthesia Cardiac Studies: Echocardiogram 01/15/21
[2022-11-14] MEDS: ceFAZolin 2,000 MG in sodium chloride 0.9% (plus) 50 ML 100 MG IV (08:32)
[2022-11-14] MEDS: oxymetazoline 0.05% Nasal Spray 15 mL 1 SPRAY NOSTRIL-B (08:43)
--- NOTE | 2022-11-14 08:46 | PM.OP ---
Operative Report Date of procedure: November 14, 2022 Pre-op diagnosis: Preop Diagnosis Hypertrophic uvula/chronic cough Post-op diagnosis: Same Post-op findings: Hypertrophic elongated thickened uvula and cyst in superior pole of the left tonsil Procedure done: Uvulectomy and marsupialization of left superior tonsillar cyst. Implants: No implants Specimens removed/disposition: Uvulectomy and contents of left superior tonsillar cyst. Neither sent for pathology. Pathology: No specimen for pathology Surgeon: Abner Booth MD Anesthesia: General Estimated blood loss: 5 mL Complications: No complications encountered Findings: Patient has had chronic cough and feeling of need to clear his throat constantly. With no evidence of any nasal drainage or postnasal drip or anything else in the nasopharynx oropharynx or hypopharyngeal area, I felt that it was likely to be due to his hypertrophic elongated thickened uvula. He is therefore going to be brought to the operating room for uvulectomy. Brief History: 67-year-old male patient with chronic cough and clearing had no other etiology for this other than a chronically hypertrophic elongated thickened uvula which hangs low touches base of tongue and epiglottis and is floppy and lays against the posterior oropharyngeal wall. Therefore he is being brought to the operating room to undergo excision of this uvula. The patient also has a superior cyst in the left tonsil anteriorly. The plan for removal of this cyst/marsupialization is also made. The procedure its risks and complications were explained in detail. These included bleeding infection scarring sore throat and anesthetic risks. With these things understood informed consent was granted and witnessed. Patient also understands that there is a possibility that his sensation and his habit of clearing may continue. Procedure: Description of procedure: The patient was placed on the operating table in the supine position. Adequate general endotracheal tube anesthesia was obtained. A timeout was accomplished identifying the patient date of plan procedure allergies fire risk and medications given. With all in agreement the procedure continued. The patient had his eyes taped shut and a head drape applied. His head was dropped 15 degrees to the horizontal. A Damien Peng mouthgag was inserted over the endotracheal tube and tongue ensuring that the upper gingiva was in the guard. This was opened and suspended from a rolled towel placed on his upper chest. A tenaculum was placed to the distal aspect of his uvula and the Coblator on ablation and coagulation modes was used to dissect the uvula from its attachment at the soft palate. Some of the thick muscle was ablated as well. This was removed but not sent to pathology as it did not show any pathologic concerns of lesions or malignancy. After that was accomplished the cyst in the superior anterior tonsil left side was marsupialized with the Coblator. Then the defects were closed with interrupted 3-0 chromic sutures. The area was then suctioned clean irrigated with saline and suctioned again. With no evidence of any bleeding the mouthgag was released and removed. His head was returned to the upright position. Head drape and tape were removed. Throat was suctioned again with no sign of any bleeding or excess secretions. Patient was then returned to anesthesia for wake-up and extubation. He tolerated the procedure well had an estimated blood loss of 5 mL and arrived in recovery in stable condition.
--- NOTE | 2022-11-14 15:28 | ANE.PACU2 ---
Inpatient post-anesthesia follow up: Airway intact: Yes Vital signs: Temperature 97.4 F Pulse Rate 91 Respiratory Rate 18 Blood Pressure 128/77 Pulse Oximetry 97 Oxygen Delivery Me thod Room Air Oxygen Flow Rate 6 Fraction of Inspir ed Oxygen Hydration adequate: Yes Nausea and vomiting: No Pain level: 2 Mental status: Baseline
== END 2022-11-14 10:10 | disposition home or self-care (01) ==
PROVIDERS: PCP Internal Medicine; Visit Provider Otolaryngology
PROC: (CPT 42140; principal; 2022-11-14 08:35)
DX: K13.79 Other lesions of oral mucosa (principal); J35.8 Other chronic diseases of tonsils and adenoids; J44.9 Chronic obstructive pulmonary disease, unspecified; I25.10 Atherosclerotic heart disease of native coronary artery without angina pectoris; I10 Essential (primary) hypertension; E78.5 Hyperlipidemia, unspecified; E11.9 Type 2 diabetes mellitus without complications; Z79.84 Long term (current) use of oral hypoglycemic drugs; Z79.4 Long term (current) use of insulin
CPT/HCPCS: 42106; 42808; 36416; 82962; J0330; J0690; J1100; J2371; J2405; J2704; J3010; J7030

== ENCOUNTER 2022-11-16 13:11 | Emergency (ER) | payer MEDICARE, MEDICAID, SELFPAY ==
--- NOTE | 2022-11-16 13:20 | W.ED.WEAKNES ---
HPI - Weakness General: Chief complaint: Nausea/Vomiting/Diarrhea Stated complaint: DIZZY; N/V Time Seen by Provider: 11/16/22 13:16 History of Present Illness: 67-year-old male presents emergency room with a complaint of nausea, vomiting and feeling dizzy. Further reveals that she had his tonsils and uvula removed few days ago. Any fever, chills, difficulty breathing, cough, coughing up blood or vomiting blood. No sick contact or recent foreign travel. She reveals history of chronic diarrhea but denies any bloody stool or dark stool. Associated symptoms: Reports dysuria, nausea and vomiting; Denies chills, diaphoresis or fever(s) Review of Systems General: Reports: 10 or more systems reviewed and unremarkable except in HPI and below Const: Denies: fever(s), chills, body aches, change in appetite, change in weight, fatigue, malaise, diaphoresis, change in sleep pattern or daytime sleepiness GI: Reports: nausea and vomiting; Denies: abdominal pain, hematemesis, coffee ground emesis, dysphagia, early satiety, constipation, bloating, belching, fecal incontinence, rectal pain, mucus in stool or steatorrhea : Reports: dysuria; Denies: flank pain, difficulty urinating, urinary frequency, urinary urgency, urinary hesitancy, urinary dribbling or difficulty starting urination Skin/Breast: Denies: rash, pruritus, erythema, photosensitivity, skin pain, skin tenderness, skin swelling, changing lesions, non-healing lesions or lesions PFSH ED PFSH: Medical History Balanitis Diabetes Erectile dysfunction Hyperlipidemia Hypertension Myalgia Phimosis Seizure disorder Surgical History H/O umbilical hernia repair History of colonoscopy History of nasal surgery septoplasty Hx of cholecystectomy S/P rotator cuff repair right Family History Mother Diabetes Heart disease Hyperlipidemia Father Heart disease Social History Alcohol intake: never Marital status: Current occupational status: retired Physical Exam Const: COMMON NORMALS: no acute distress, average body habitus, patient oriented x3, no limitations, healthy appearing, alert and well nourished HENMT: OTHER: Uvula area and tonsil area with surgical changes without any active bleeding or major swelling. Neck/C-Spine: COMMON NORMALS: full ROM, no lymphadenopathy, supple, no meningeal signs, no JVD, Thyroid normal and No carotid bruits THYROID: Thyroid normal Chest: COMMONS NORMALS: normal inspection of the chest, normal palpation of entire chest wall, normal inspection of the breasts and normal palpation of the breasts Breast/axilla inspection: Yes normal inspection of the breasts BREAST/AXILLA PALPATION: Yes normal palpation of the breasts Resp: COMMON NORMALS: normal respiratory effort, No retractions, No use of accessory muscles, clear to auscultation bilaterally and percussion normal AUSCULTATION: clear to auscultation bilaterally PERCUSSION: percussion normal Cardio: COMMON NORMALS: no JVD GI: COMMON NORMALS: Normal to inspection, nondistended, normoactive bowel sounds present, Soft to palpation, non-tender, No hepatosplenomegaly present, no masses and no bruits PALPATION: Yes Soft to palpation and Yes No hepatosplenomegaly present Extremity: COMMON NORMALS: normal to inspection, full ROM, capillary refill normal, no joint enlargement, no clubbing, cyanosis or edema, no calf tenderness and no pedal edema Neuro: COMMON NORMALS: patient oriented x3 SENSORIUM/ORIENTATION: Yes alert MENINGEAL SIGNS: Yes no meningeal signs Course Reevaluation(s): Reevaluation #2: At 4:27 PM patient was reassessed and remained stable emergency with any acute distress. Vital Signs: Vital signs: Vital Signs Temperature 98.4 F 11/16/22 13:35 Pulse Rate 58 L 11/16/22 16:57 Respiratory Rate 16 11/16/22 13:35 Blood Pressure 145/70 11/16/22 16:57 Pulse Oximetry 98 11/16/22 16:57 Oxygen Delivery Me thod Room Air 11/16/22 16:30 MDM - Weakness Medical Decision Making Patient was made comfortable emergency room. Patient was given IV fluid. While in emergency room patient without any nausea, vomiting or diarrhea. Was able to drink without vomiting. Patient had extensive work-up including labs. [place] lab finding with the patient and patient was reassured. He was past medical records including his recent surgical report. Differential Diagnosis Likely acute myocardial infarction, anemia, hypoglycemia, hypothyroidism, rhabdomyolysis, sepsis and dehydration Lab Data 11/16/22 13:52 11/16/22 13:52 Laboratory Results WBC 9.4 10^3/uL (4.0-10.0) 11/16/22 13:52 RBC 4.60 10^6/uL (4.1-5.3) 11/16/22 13:52 Hgb 11.2 g/dL (11.7-16.6) L 11/16/22 13:52 Hct 39.2 % (42.0-52.0) L 11/16/22 13:52 MCV 85.2 fl (80-94) 11/16/22 13:52 MCH 24.3 pg (28.0-34.0) L 11/16/22 13:52 MCHC 28.6 g/dL (30.0-36.0) L 11/16/22 13:52 RDW 18.6 % (12.1-15.1) H 11/16/22 13:52 Plt Count 191 10^3/cmm (130-400) 11/16/22 13:52 MPV 10.9 fL (7.4-10.4) H 11/16/22 13:52 Neut % (Auto) 69.1 % 11/16/22 13:52 Lymph % (Auto) 19.4 % 11/16/22 13:52 [place] % (Auto) 7.7 % 11/16/22 13:52 Eos % (Auto) 2.5 % 11/16/22 13:52 Baso % (Auto) 0.6 % 11/16/22 13:52 Neut # (Auto) 6.47 10^3/uL (1.8-7.7) 11/16/22 13:52 Lymph # (Auto) 1.8 10^3/uL (0.8-4.8) 11/16/22 13:52 [place] # (Auto) 0.7 10^3/uL (0.2-0.9) 11/16/22 13:52 Eos # (Auto) 0.2 10^3/uL (0.0-0.8) 11/16/22 13:52 Baso # (Auto) 0.1 10^3/uL (0.0-0.1) 11/16/22 13:52 Nucleated RBC % (auto) 0 % 11/16/22 13:52 Nucleated RBCs # 0.0 /100WBC 11/16/22 13:52 Sodium 132 mmol/L (136-145) L 11/16/22 13:52 Potassium 4.2 mmol/L (3.5-5.1) 11/16/22 13:52 Chloride 96 mmol/L (98-107) L 11/16/22 13:52 Carbon Dioxide 22 mmol/L (22-29) 11/16/22 13:52 Anion Gap 18.2 (5-19) 11/16/22 13:52 BUN 22 mg/dL (8-23) 11/16/22 13:52 Creatinine 1.2 mg/dL (0.7-1.2) 11/16/22 13:52 GFR Calculation 60.8 mL/min (90-130) L 11/16/22 13:52 Glucose 198 mg/dL (65-115) H 11/16/22 13:52 Calculated Osmolality 283 mOsm/kg (285-295) L 11/16/22 13:52 Calcium 9.6 mg/dL (8.5-10.5) 11/16/22 13:52 Total Bilirubin 0.5 mg/dL (0.15-1.2) 11/16/22 13:52 AST 48 U/L (0-40) H 11/16/22 13:52 ALT 36 U/L (0-41) 11/16/22 13:52 Alkaline Phosphatase 81 U/L (40-130) 11/16/22 13:52 Total Protein 6.9 g/dL (6.6-8.7) 11/16/22 13:52 Albumin 3.9 g/dL (3.5-5.2) 11/16/22 13:52 Globulin 3.0 g/dL (1.3-4.6) 11/16/22 13:52 Discharge Plan Discharge Patient Disposition: Home Clinical Impression: Nausea & vomiting Condition: Stable Prescriptions: New zofran 4 mg PO 3XD PRN (Reason: nausea and vomiting) Qty: 20 0RF No Action Victoza 2-Kieran 0.6 mg/0.1 mL (18 mg/3 mL) pen injector 1.2 mg SUBCUT DAILY omeprazole 40 mg capsule,delayed release(DR/EC) 40 mg PO BID cholecalciferol (vitamin D3) 1,250 mcg (50,000 unit) tablet 25 mcg PO .2 times weekly Rx Instructions: Tues and Thurs metformin 1,000 mg tablet 1,000 mg PO BID furosemide 40 mg tablet 40 mg PO DAILY loratadine [Allergy Relief (loratadine)] 10 mg tablet 10 mg PO DAILY lisinopril 20 mg tablet 20 mg PO DAILY fluticasone propionate [Flonase Allergy Relief] 50 mcg/actuation spray,suspension 2 spray intranasal TID PRN (Reason: Congestion) Rx Instructions: administer into each nostril Jardiance 10 mg tablet 25 mg PO DAILY atorvastatin 20 mg tablet 20 mg PO DAILY insulin glargine [Lantus Solostar U-100 Insulin] 100 unit/mL (3 mL) insulin pen 56 unit SUBCUT DAILY multivitamin Tablet 1 tab PO DAILY metoprolol tartrate 50 mg tablet 50 mg PO BID glucosamine sulfate 750 mg Tablet 1,500 mg PO DAILY Rx Instructions: administer with a meal tramadol 50 mg tablet 50 mg PO Q6H PRN (Reason: pain) Qty: 30 0RF Discharge Orders: Discharge ED (Routine); Ordered 11/16/22 Ordered By: Silvia Chadwick Referrals: Re Carson MD [Primary Care Provider] - Discharge Diet: Advance as tolerated Discharge Activity: Resume usual activity Patient Instructions: Opioid Safety, Pain Management Coding Level of Care Code ED Professor [employer] Visual [employer] for Karen Montoya
[2022-11-16 13:35] VITALS: BP 117/68; PULSE 60; RESP 16; TEMP 36.9; O2SAT 99; BMI 35.2
[2022-11-16] MEDS: ondansetron 2 mg/ML SDV 2 mL 4 MG IVP (13:54)
[2022-11-16] MEDS: sodium chloride 0.9% 1,000 ML 999 ML IV (13:54)
[2022-11-16 14:05] LABS: Basophils # 0.1 10^3/uL (0.0-0.1); Basophils % 0.6 %; Eosinophils # 0.2 10^3/uL (0.0-0.8); Eosinophils % 2.5 %; Hematocrit 39.2 % (42.0-52.0); Hemoglobin 11.2 g/dL (11.7-16.6); Lymphocytes # 1.8 10^3/uL (0.8-4.8); Lymphocytes % 19.4 %; Mean Corpuscular HGB Conc 28.6 g/dL (30.0-36.0); Mean Corpuscular Hemoglobin 24.3 pg (28.0-34.0); Mean Corpuscular Volume 85.2 fl (80-94); Mean Platelet Volume 10.9 fL (7.4-10.4); Monocytes # 0.7 10^3/uL (0.2-0.9); Monocytes % 7.7 %; Neutrophils # 6.47 10^3/uL (1.8-7.7); Neutrophils % 69.1 %; Nucleated Red Blood Cells % 0 %; Platelet Count 191 10^3/cmm (130-400); Red Cell Distribution Width 18.6 % (12.1-15.1); White Blood Count 9.4 10^3/uL (4.0-10.0)
[2022-11-16 14:31] LABS: Alanine Aminotransferase 36 U/L (0-41); Albumin Level 3.9 g/dL (3.5-5.2); Alkaline Phosphatase 81 U/L (40-130); Aspartate Amino Transferase 48 U/L (0-40); Blood Urea Nitrogen 22 mg/dL (8-23); Calcium 9.6 mg/dL (8.5-10.5); Carbon Dioxide 22 mmol/L (22-29); Chloride 96 mmol/L (98-107); Glomerular Filtration Rate 60.8 mL/min (90-130); Glucose 198 mg/dL (65-115); Osmolality Calculated 283 mOsm/kg (285-295); Sodium 132 mmol/L (136-145); Total Bilirubin 0.5 mg/dL (0.15-1.2); Total Protein 6.9 g/dL (6.6-8.7)
[2022-11-16 14:37] LABS: Anion Gap 18.2 (5-19); Potassium 4.2 mmol/L (3.5-5.1)
[2022-11-16 15:00] VITALS: BP 116/70; PULSE 53; O2SAT 92
[2022-11-16 15:30] VITALS: BP 99/49; PULSE 67; O2SAT 95
[2022-11-16 16:00] VITALS: BP 106/55; PULSE 54; O2SAT 93
[2022-11-16 16:30] VITALS: BP 124/66; PULSE 55; O2SAT 95
[2022-11-16 16:57] VITALS: BP 145/70; PULSE 58; O2SAT 98
== END 2022-11-16 16:59 | disposition home or self-care (01) ==
PROVIDERS: Emergency Provider Family Medicine; PCP Internal Medicine
DX: R11.2 Nausea with vomiting, unspecified (principal); Z79.84 Long term (current) use of oral hypoglycemic drugs; Z79.4 Long term (current) use of insulin; E11.9 Type 2 diabetes mellitus without complications; E78.5 Hyperlipidemia, unspecified; I10 Essential (primary) hypertension
CPT/HCPCS: 80053; 85025; 96361; 96374; 99284; J2405; J7030

== ENCOUNTER → 2022-11-22 09:58 | Outpatient (BNVA) | payer MEDICARE, MEDICAID, SELFPAY | PROVIDERS: PCP Internal Medicine; Visit Provider Otolaryngology | DX: Z48.814 Encounter for surgical aftercare following surgery on the teeth or oral cavity | CPT/HCPCS: 99024 ==

== ENCOUNTER → 2022-12-06 09:20 | Outpatient (BNVA) | payer OTHER, MEDICAID, SELFPAY | PROVIDERS: PCP Internal Medicine; Visit Provider Otolaryngology | DX: Z48.89 Encounter for other specified surgical aftercare (principal); K13.79 Other lesions of oral mucosa | CPT/HCPCS: 99024; 99212 ==

== ENCOUNTER 2022-12-19 06:00 | Outpatient (RCR) | payer MEDICARE, MEDICAID, SELFPAY | END 2022-12-26 23:59 | disposition home or self-care (01) | LOC: TPT 06:00 | PROVIDERS: PCP Internal Medicine; Visit Provider Internal Medicine | DX: M25.512 Pain in left shoulder (principal) | CPT/HCPCS: 97110; 97163 ==

== ENCOUNTER 2022-12-24 17:15 | Emergency (ER) | payer MEDICARE, MEDICAID, SELFPAY ==
[2022-12-24 17:17] VITALS: BP 109/62; PULSE 92; RESP 17; O2SAT 96; BMI 35.0
--- NOTE | 2022-12-24 17:22 | XRR_ITS ---
PROCEDURE INFORMATION: Exam: XR Chest Exam date and time: 12/24/2022 5:44 PM Age: 67 years old Clinical indication: Other: Syncope; Prior surgery; Surgery date: 6+ months; Surgery type: RT shoulder TECHNIQUE: Imaging protocol: Radiologic exam of the chest. Views: 1 view. COMPARISON: CR XR chest 1V portable [id number] 04/14/2022 1:21 PM FINDINGS: Lungs: Unremarkable. No consolidation. Pleural spaces: Unremarkable. No pleural effusion. No pneumothorax. Heart/Mediastinum: Unremarkable. No cardiomegaly. Bones/joints: Unremarkable. Intraperitoneal space: There is no free intraperitoneal air. XR/XR chest 1V portable [id number] IMPRESSION: No acute cardiopulmonary disease
--- NOTE | 2022-12-24 17:22 | CTR_ITS ---
PROCEDURE INFORMATION: Exam: CT Head Without Contrast Exam date and time: 12/24/2022 5:57 PM Age: 67 years old Clinical indication: Syncope and collapse TECHNIQUE: Imaging protocol: Computed tomography of the head without contrast. Radiation optimization: All CT scans at this facility use at least one of these dose optimization techniques: automated exposure control; mA and/or kV adjustment per patient size (includes targeted exams where dose is matched to clinical indication); or iterative reconstruction. REPORTING DATA: Count of CT and Cardiac NM exams in prior 12 months: This patient has received [address] and 0 known cardiac nuclear medicine studies in the 12 months prior to the current study. COMPARISON: CT head wo con* [id number] 05/08/2018 12:12 AM RADIATION DOSE METRICS: Total DLP (mGy-cm): 1126.58 FINDINGS: Brain: Normal. No hemorrhage. Periventricular white matter disease. No mass effect. There is a small amount of fat to the left of the falx in the frontal region, correlating with fatty falx. Cerebral ventricles: No ventriculomegaly. Paranasal sinuses: Visualized sinuses are unremarkable. No fluid levels. Mastoid air cells: Visualized mastoid air cells are well aerated. Bones/joints: Unremarkable. No acute fracture. Soft tissues: Unremarkable. CT/CT head wo con* [id number] IMPRESSION: No acute intracranial abnormality.
--- NOTE | 2022-12-24 17:24 | ED_ITS ---
Documented by User: Brien Lizarraga DO 12/24/22 17:26 HPI - Syncope General: Chief Complaint: Syncope Stated Complaint: Syncope Time Seen by Provider: 12/24/22 17:17 History of Present Illness: Patient arrives via EMS from home complaining of near syncope episode after getting up from a sitting position after using the bathroom. Patient was able to catch himself on the bathtub but denies any head trauma. Patient is a diabetic blood sugar was approximately 110. Patient did not eating lunch. Patient did admit to drinking 12 bottles of water and 1 bottle of soda throughout the day. Patient was given 300 mils of normal saline on route. Patient has no complaints at this time. Review of Systems 2 General: Reports: 10 or more systems reviewed and unremarkable except in HPI and below PFSH ED PFSH: Medical History Balanitis Diabetes Erectile dysfunction Hyperlipidemia Hypertension Myalgia Phimosis Seizure disorder Surgical History H/O umbilical hernia repair History of colonoscopy History of nasal surgery septoplasty History of uvulectomy Hx of cholecystectomy S/P rotator cuff repair right Family History Mother Diabetes Heart disease Hyperlipidemia Father Heart disease Social History Alcohol intake: never Marital status: Current occupational status: retired Physical Exam Const: COMMON NORMALS: no acute distress, average body habitus, patient oriented x3, no limitations, healthy appearing, alert and well nourished HENMT: COMMON NORMALS: normocephalic, atraumatic, hearing grossly normal bilaterally, external ears normal, Normal external nose present and moist oral mucous membranes HEAD & SCALP: normocephalic and atraumatic NOSE: Normal external nose present EXTERNAL EAR: Yes external ears normal Eye: COMMON NORMALS: Equal, round and reactive pupils present, EOMs intact bilaterally, conjunctivae normal and no scleral icterus CONJUNCTIVA: Yes conjunctivae normal PUPIL: Yes Equal, round and reactive pupils present Neck/C-Spine: COMMON NORMALS: full ROM, no lymphadenopathy, supple, no meningeal signs, no JVD and Thyroid normal THYROID: Thyroid normal Chest: COMMONS NORMALS: normal inspection of the chest and normal palpation of entire chest wall Resp: COMMON NORMALS: normal respiratory effort, No retractions, No use of accessory muscles and clear to auscultation bilaterally AUSCULTATION: clear to auscultation bilaterally Cardio: COMMON NORMALS: no JVD, regular rate, regular rhythm, S1 normal heart sound present, S2 normal heart sound present, No gallops present (Cardio), No clicks present (Cardio), No murmurs present (Cardio) and No rub (Cardio) RATE: regular rate RHYTHM: regular rhythm HEART SOUNDS: S1 normal heart so und present and S2 normal heart sound present GI: COMMON NORMALS: Normal to inspection, nondistended, normoactive bowel sounds present, Soft to palpation, non-tender, No hepatosplenomegaly present and no masses PALPATION: Yes Soft to palpation and Yes No hepatosplenomegaly present : COMMON NORMALS: Yes no CVA tenderness BLADDER/KIDNEY EXAM: Yes no CVA tenderness Back/Pelvis: COMMON NORMALS: no CVA tenderness Neuro: COMMON NORMALS: patient oriented x3 SENSORIUM/ORIENTATION: Yes alert MENINGEAL SIGNS: Yes no meningeal signs Course Vital Signs: Vital signs: Vital Signs Pulse Rate 87 12/24/22 18:33 Respiratory Rate 18 12/24/22 18:33 Blood Pressure 139/73 12/24/22 18:33 Pulse Oximetry 97 12/24/22 18:33 Oxygen Delivery Me thod Room Air 12/24/22 18:33 Oxygen Flow Rate 2 12/24/22 17:17 MDM - Syncope Differential Diagnosis Likely vasovagal syncope; Unlikely syncope due to orthostatic hypotension, complete atrioventricular block, subarachnoid hemorrhage, pulmonary embolism or dehydration Medical Records I reviewed the patient's medical records. Lab Data I reviewed the patient's lab results. 12/24/22 17:42 12/24/22 17:42 Radiology Impressions Chest X-Ray 12/24/22 17:22 IMPRESSION: No acute cardiopulmonary disease Head CT 12/24/22 17:22 IMPRESSION: No acute intracranial abnormality. Laboratory Results WBC 9.90 10^3/uL (3.29-11.43) 12/24/22 17:42 RBC 4.94 10^6/uL (3.85-5.65) 12/24/22 17:42 Hgb 12.60 g/dL (11.27-16.99) 12/24/22 17:42 Hct 40.7 % (37-53) 12/24/22 17:42 MCV 82.4 fl (82-101) 12/24/22 17:42 MCH 25.5 pg (27-33) L 12/24/22 17:42 MCHC 31.0 g/dL (30-55) 12/24/22 17:42 RDW 19.7 % (12.1-15.1) H 12/24/22 17:42 Plt Count 161 10^3/cmm (157-399) 12/24/22 17:42 MPV 10.2 fL (7.4-10.4) 12/24/22 17:42 Neut % (Auto) 78.3 % 12/24/22 17:42 Lymph % (Auto) 13.6 % 12/24/22 17:42 [place] % (Auto) 6.6 % 12/24/22 17:42 Eos % (Auto) 0.6 % 12/24/22 17:42 Baso % (Auto) 0.3 % 12/24/22 17:42 Neut # (Auto) 7.75 10^3/uL (1.8-7.7) H 12/24/22 17:42 Lymph # (Auto) 1.4 10^3/uL (0.8-4.8) 12/24/22 17:42 [place] # (Auto) 0.7 10^3/uL (0.2-0.9) 12/24/22 17:42 Eos # (Auto) 0.1 10^3/uL (0.0-0.8) 12/24/22 17:42 Baso # (Auto) 0.0 10^3/uL (0.0-0.1) 12/24/22 17:42 Nucleated RBC % (auto) 0 % 12/24/22 17:42 Nucleated RBCs # 0.0 /100WBC 12/24/22 17:42 Sodium 142 mmol/L (136-145) 12/24/22 17:42 Potassium 2.8 mmol/L (3.5-5.1) L* 12/24/22 17:42 Chloride 104 mmol/L (98-107) 12/24/22 17:42 Carbon Dioxide 22 mmol/L (22-29) 12/24/22 17:42 Anion Gap 18.8 (5-19) 12/24/22 17:42 BUN 9 mg/dL (8-23) 12/24/22 17:42 Creatinine 1.2 mg/dL (0.7-1.2) 12/24/22 17:42 GFR Calculation 60.8 mL/min (90-130) L 12/24/22 17:42 Glucose 119 mg/dL (65-115) H 12/24/22 17:42 Calculated Osmolality 294 mOsm/kg (285-295) 12/24/22 17:42 Calcium 9.6 mg/dL (8.5-10.5) 12/24/22 17:42 Magnesium 1.5 mg/dL (1.7-2.3) L 12/24/22 17:42 Total Bilirubin 0.7 mg/dL (0.15-1.2) 12/24/22 17:42 AST 33 U/L (0-40) 12/24/22 17:42 ALT 27 U/L (0-41) 12/24/22 17:42 Alkaline Phosphatase 87 U/L (40-130) 12/24/22 17:42 Troponin T Baseline 37 ng/L (0-15) H 12/24/22 17:42 Troponin T 120 Minute 32.29 ng/L (0-15) H 12/24/22 19:40 Delta Troponin T -4.71 ABS# (0-10) L 12/24/22 19:40 NT-Pro-B Natriuret Pep 120 pg/mL (0-125) 12/24/22 17:42 Total Protein 6.9 g/dL (6.6-8.7) 12/24/22 17:42 Albumin 4.5 g/dL (3.5-5.2) 12/24/22 17:42 Globulin 2.4 g/dL (1.3-4.6) 12/24/22 17:42 Urine Color Yellow (Yellow) 12/24/22 17:48 Urine Appearance Sl hazy (CLEAR) A 12/24/22 17:48 Urine pH 5 (5-7) 12/24/22 17:48 Ur Specific [place] 1.015 (1.005-1.030) 12/24/22 17:48 Urine Protein 1+ (Negative) H 12/24/22 17:48 Urine Glucose (UA) 4+ (Normal) H 12/24/22 17:48 Urine Ketones 1+ (Negative) H 12/24/22 17:48 Urine Blood 2+ (Negative) H 12/24/22 17:48 Urine Nitrate Negative (Negative) 12/24/22 17:48 Urine Bilirubin 1+ (Negative) H 12/24/22 17:48 Urine Urobilinogen Norm mg/dL (Negative) 12/24/22 17:48 Ur Leukocyte Esterase Negative (Negative) 12/24/22 17:48 Urine RBC None /hpf (0-2) 12/24/22 17:48 Urine WBC 0-4 /hpf (0-5) H 12/24/22 17:48 Ur Squamous Epith Cells 0-4 /hpf (0-5) H 12/24/22 17:48 Amorphous Sediment Not Reportable 12/24/22 17:48 Urine Bacteria Trace /hpf (NONE) 12/24/22 17:48 Hyaline Casts 25-40 /lpf H 12/24/22 17:48 Urine Mucus 1+ /hpf 12/24/22 17:48 Discharge Plan Discharge Patient Disposition: Home Clinical Impression: Syncope, Hypokalemia Condition: Stable Prescriptions: New potassium chloride 40 mEq/15 mL liquid 40 meq PO BID 5 Days Qty: 150 0RF No Action Victoza 2-Kieran 0.6 mg/0.1 mL (18 mg/3 mL) pen injector 1.2 mg SUBCUT DAILY omeprazole 40 mg capsule,delayed release(DR/EC) 40 mg PO BID cholecalciferol (vitamin D3) 1,250 mcg (50,000 unit) tablet 25 mcg PO .2 times weekly Rx Instructions: Tues and Thurs metformin 1,000 mg tablet 1,000 mg PO BID furosemide 40 mg tablet 40 mg PO DAILY loratadine [Allergy Relief (loratadine)] 10 mg tablet 10 mg PO DAILY lisinopril 20 mg tablet 20 mg PO DAILY fluticasone propionate [Flonase Allergy Relief] 50 mcg/actuation spray,suspension 2 spray intranasal TID PRN (Reason: Congestion) Rx Instructions: administer into each nostril Jardiance 10 mg tablet 25 mg PO DAILY atorvastatin 20 mg tablet 20 mg PO DAILY insulin glargine [Lantus Solostar U-100 Insulin] 100 unit/mL (3 mL) insulin pen 56 unit SUBCUT DAILY multivitamin Tablet 1 tab PO DAILY metoprolol tartrate 50 mg tablet 50 mg PO BID glucosamine sulfate 750 mg Tablet 1,500 mg PO DAILY Rx Instructions: administer with a meal tramadol 50 mg tablet 50 mg PO Q6H PRN (Reason: pain) Qty: 30 0RF zofran 4 mg PO 3XD PRN (Reason: nausea and vomiting) Qty: 20 0RF Discharge Orders: Discharge ED (Routine); Ordered 12/24/22 Ordered By: Domenico Person Referrals: Re Carson MD [Primary Care Provider] - 1-3 days Discharge Diet: Advance as tolerated Discharge Activity: Resume usual activity Patient Instructions: Hypokalemia (ED), Syncope (ED) Coding Level of Care Code ED Health Safety Specialist for Chg Fwd Documented by User: Domenico Person MD 12/24/22 20:24 HPI - Syncope General: Chief Complaint: Syncope Stated Complaint: Syncope Time Seen by Provider: 12/24/22 17:17 PFSH ED PFSH: Medical History Balanitis Diabetes Erectile dysfunction Hyperlipidemia Hypertension Myalgia Phimosis Seizure disorder Surgical History H/O umbilical hernia repair History of colonoscopy History of nasal surgery septoplasty History of uvulectomy Hx of cholecystectomy S/P rotator cuff repair right Family History Mother Diabetes Heart disease Hyperlipidemia Father Heart disease Social History Alcohol intake: never Marital status: Current occupational status: retired Course Vital Signs: Vital signs: Vital Signs Pulse Rate 87 12/24/22 18:33 Respiratory Rate 18 12/24/22 18:33 Blood Pressure 139/73 12/24/22 18:33 Pulse Oximetry 97 12/24/22 18:33 Oxygen Delivery Me thod Room Air 12/24/22 18:33 Oxygen Flow Rate 2 12/24/22 17:17 MDM - Syncope Medical Decision Making Patient presents here with syncopal event likely vagal after going to the bathroom he is well-appearing here he does have hypokalemia I did give him potassium here we will replace his potassium at home as well he is to follow-up with PCP and return if worsening he understands agrees to plan. Lab Data 12/24/22 17:42 12/24/22 17:42 Radiology Impressions Chest X-Ray 12/24/22 17:22 IMPRESSION: No acute cardiopulmonary disease Head CT 12/24/22 17:22 IMPRESSION: No acute intracranial abnormality. Laboratory Results WBC 9.90 10^3/uL (3.29-11.43) 12/24/22 17:42 RBC 4.94 10^6/uL (3.85-5.65) 12/24/22 17:42 Hgb 12.60 g/dL (11.27-16.99) 12/24/22 17:42 Hct 40.7 % (37-53) 12/24/22 17:42 MCV 82.4 fl (82-101) 12/24/22 17:42 MCH 25.5 pg (27-33) L 12/24/22 17:42 MCHC 31.0 g/dL (30-55) 12/24/22 17:42 RDW 19.7 % (12.1-15.1) H 12/24/22 17:42 Plt Count 161 10^3/cmm (157-399) 12/24/22 17:42 MPV 10.2 fL (7.4-10.4) 12/24/22 17:42 Neut % (Auto) 78.3 % 12/24/22 17:42 Lymph % (Auto) 13.6 % 12/24/22 17:42 [place] % (Auto) 6.6 % 12/24/22 17:42 Eos % (Auto) 0.6 % 12/24/22 17:42 Baso % (Auto) 0.3 % 12/24/22 17:42 Neut # (Auto) 7.75 10^3/uL (1.8-7.7) H 12/24/22 17:42 Lymph # (Auto) 1.4 10^3/uL (0.8-4.8) 12/24/22 17:42 [place] # (Auto) 0.7 10^3/uL (0.2-0.9) 12/24/22 17:42 Eos # (Auto) 0.1 10^3/uL (0.0-0.8) 12/24/22 17:42 Baso # (Auto) 0.0 10^3/uL (0.0-0.1) 12/24/22 17:42 Nucleated RBC % (auto) 0 % 12/24/22 17:42 Nucleated RBCs # 0.0 /100WBC 12/24/22 17:42 Sodium 142 mmol/L (136-145) 12/24/22 17:42 Potassium 2.8 mmol/L (3.5-5.1) L* 12/24/22 17:42 Chloride 104 mmol/L (98-107) 12/24/22 17:42 Carbon Dioxide 22 mmol/L (22-29) 12/24/22 17:42 Anion Gap 18.8 (5-19) 12/24/22 17:42 BUN 9 mg/dL (8-23) 12/24/22 17:42 Creatinine 1.2 mg/dL (0.7-1.2) 12/24/22 17:42 GFR Calculation 60.8 mL/min (90-130) L 12/24/22 17:42 Glucose 119 mg/dL (65-115) H 12/24/22 17:42 Calculated Osmolality 294 mOsm/kg (285-295) 12/24/22 17:42 Calcium 9.6 mg/dL (8.5-10.5) 12/24/22 17:42 Magnesium 1.5 mg/dL (1.7-2.3) L 12/24/22 17:42 Total Bilirubin 0.7 mg/dL (0.15-1.2) 12/24/22 17:42 AST 33 U/L (0-40) 12/24/22 17:42 ALT 27 U/L (0-41) 12/24/22 17:42 Alkaline Phosphatase 87 U/L (40-130) 12/24/22 17:42 Troponin T Baseline 37 ng/L (0-15) H 12/24/22 17:42 Troponin T 120 Minute 32.29 ng/L (0-15) H 12/24/22 19:40 Delta Troponin T -4.71 ABS# (0-10) L 12/24/22 19:40 NT-Pro-B Natriuret Pep 120 pg/mL (0-125) 12/24/22 17:42 Total Protein 6.9 g/dL (6.6-8.7) 12/24/22 17:42 Albumin 4.5 g/dL (3.5-5.2) 12/24/22 17:42 Globulin 2.4 g/dL (1.3-4.6) 12/24/22 17:42 Urine Color Yellow (Yellow) 12/24/22 17:48 Urine Appearance Sl hazy (CLEAR) A 12/24/22 17:48 Urine pH 5 (5-7) 12/24/22 17:48 Ur Specific [place] 1.015 (1.005-1.030) 12/24/22 17:48 Urine Protein 1+ (Negative) H 12/24/22 17:48 Urine Glucose (UA) 4+ (Normal) H 12/24/22 17:48 Urine Ketones 1+ (Negative) H 12/24/22 17:48 Urine Blood 2+ (Negative) H 12/24/22 17:48 Urine Nitrate Negative (Negative) 12/24/22 17:48 Urine Bilirubin 1+ (Negative) H 12/24/22 17:48 Urine Urobilinogen Norm mg/dL (Negative) 12/24/22 17:48 Ur Leukocyte Esterase Negative (Negative) 12/24/22 17:48 Urine RBC None /hpf (0-2) 12/24/22 17:48 Urine WBC 0-4 /hpf (0-5) H 12/24/22 17:48 Ur Squamous Epith Cells 0-4 /hpf (0-5) H 12/24/22 17:48 Amorphous Sediment Not Reportable 12/24/22 17:48 Urine Bacteria Trace /hpf (NONE) 12/24/22 17:48 Hyaline Casts 25-40 /lpf H 12/24/22 17:48 Urine Mucus 1+ /hpf 12/24/22 17:48 Discharge Plan Discharge Patient Disposition: Home Clinical Impression: Syncope, Hypokalemia Condition: Stable Prescriptions: New potassium chloride 40 mEq/15 mL liquid 40 meq PO BID 5 Days Qty: 150 0RF No Action Victoza 2-Kieran 0.6 mg/0.1 mL (18 mg/3 mL) pen injector 1.2 mg SUBCUT DAILY omeprazole 40 mg capsule,delayed release(DR/EC) 40 mg PO BID cholecalciferol (vitamin D3) 1,250 mcg (50,000 unit) tablet 25 mcg PO .2 times weekly Rx Instructions: Tues and Thurs metformin 1,000 mg tablet 1,000 mg PO BID furosemide 40 mg tablet 40 mg PO DAILY loratadine [Allergy Relief (loratadine)] 10 mg tablet 10 mg PO DAILY lisinopril 20 mg tablet 20 mg PO DAILY fluticasone propionate [Flonase Allergy Relief] 50 mcg/actuation spr ay,suspension 2 spray intranasal TID PRN (Reason: Congestion) Rx Instructions: administer into each nostril Jardiance 10 mg tablet 25 mg PO DAILY atorvastatin 20 mg tablet 20 mg PO DAILY insulin glargine [Lantus Solostar U-100 Insulin] 100 unit/mL (3 mL) insulin pen 56 unit SUBCUT DAILY multivitamin Tablet 1 tab PO DAILY metoprolol tartrate 50 mg tablet 50 mg PO BID glucosamine sulfate 750 mg Tablet 1,500 mg PO DAILY Rx Instructions: administer with a meal tramadol 50 mg tablet 50 mg PO Q6H PRN (Reason: pain) Qty: 30 0RF zofran 4 mg PO 3XD PRN (Reason: nausea and vomiting) Qty: 20 0RF Discharge Orders: Discharge ED (Routine); Ordered 12/24/22 Ordered By: Domenico Person Referrals: Re Carson MD [Primary Care Provider] - 1-3 days Discharge Diet: Advance as tolerated Discharge Activity: Resume usual activity Patient Instructions: Hypokalemia (ED), Syncope (ED) Coding Level of Care Code ED Health Safety Specialist for Karen Montoya
[2022-12-24 17:31] VITALS: PULSE 91; RESP 16; O2SAT 95
[2022-12-24 17:47] LABS: Basophils % 0.3 %; Eosinophils # 0.1 10^3/uL (0.0-0.8); Eosinophils % 0.6 %; Hematocrit 40.7 % (37-53); Lymphocytes # 1.4 10^3/uL (0.8-4.8); Lymphocytes % 13.6 %; Mean Corpuscular Hemoglobin 25.5 pg (27-33); Mean Corpuscular Volume 82.4 fl (82-101); Mean Platelet Volume 10.2 fL (7.4-10.4); Monocytes # 0.7 10^3/uL (0.2-0.9); Monocytes % 6.6 %; Neutrophils # 7.75 10^3/uL (1.8-7.7); Neutrophils % 78.3 %; Nucleated Red Blood Cells % 0 %; Platelet Count 161 10^3/cmm (157-399); Red Blood Count 4.94 10^6/uL (3.85-5.65); Red Cell Distribution Width 19.7 % (12.1-15.1)
[2022-12-24 18:12] LABS: Protein Urine 1+ (Negative); Specific Gravity, Urine 1.015 (1.005-1.030); Urine Appearance SL Hazy (CLEAR); Urine Color Yellow (Yellow); pH Urine 5 (5-7)
[2022-12-24 18:13] LABS: Add Urine Microscopic? YES; Bacteria Urine TRACE /hpf; Bilirubin Urine 1+ (Negative); Blood Urine 2+ (Negative); Glucose Urine UA 4+ (Normal); Ketones Urine 1+ (Negative); Leukocyte Esterase Urine Negative (Negative); Mucus Urine 1+ /hpf; Nitrate Urine Negative (Negative); Squamous Epithelial Cell Urine 0-4 /hpf (0-5); Urobilinogen Urine Norm (Negative); WBC Urine 0-4 /hpf (0-5)
[2022-12-24 18:14] LABS: Add Urine Culture? No; Hyaline Casts Urine 25-40 /lpf
[2022-12-24 18:17] LABS: Troponin(5th) Baseline 37 ng/L (0-15)
[2022-12-24 18:28] LABS: Alanine Aminotransferase 27 U/L (0-41); Albumin Level 4.5 g/dL (3.5-5.2); Alkaline Phosphatase 87 U/L (40-130); Anion Gap 18.8 (5-19); Aspartate Amino Transferase 33 U/L (0-40); Blood Urea Nitrogen 9 mg/dL (8-23); Calcium 9.6 mg/dL (8.5-10.5); Carbon Dioxide 22 mmol/L (22-29); Chloride 104 mmol/L (98-107); Globulin 2.4 g/dL (1.3-4.6); Glomerular Filtration Rate 60.8 mL/min (90-130); Glucose 119 mg/dL (65-115); Magnesium 1.5 mg/dL (1.7-2.3); NT Pro B Type Natriuretic Pept 120 pg/mL (0-125); Osmolality Calculated 294 mOsm/kg (285-295); Sodium 142 mmol/L (136-145); Total Bilirubin 0.7 mg/dL (0.15-1.2); Total Protein 6.9 g/dL (6.6-8.7)
[2022-12-24] MEDS: sodium chloride 0.9% 1,000 ML 999 ML IV (18:32)
[2022-12-24 18:33] VITALS: BP 139/73; PULSE 87; RESP 18; O2SAT 97
[2022-12-24 18:38] LABS: Potassium 2.8 mmol/L (3.5-5.1)
[2022-12-24] MEDS: potassium chloride ER 20 mEq Tablet 60 MEQ PO (19:02)
--- NOTE | 2022-12-24 19:22 | ECG_ITS ---
[facility] Test Date: 2022-12-24 Pat Name: Quan Mehta Department: Room: Gender: Male [employer]: : 1955 Requested By: Brien Lizarraga Order Number: [id number] Remedios MD: Tisha Gannon M.D. Measurements Intervals [place] Rate: 89 P: 34 IN: 132 QRS: -14 QRSD: 108 T: 42 QT: 400 QTc: 488 Interpretive Statements SINUS RHYTHM NONSPECIFIC ST & T-WAVE ABNORMALITY Compared to ECG 04/14/2022 15:25:01 No significant changes Electronically Signed On 12-25-2022 0:05:14 CDT by Tisha Gannon M.D. [id number]
[2022-12-24 20:02] LABS: Troponin 5 2HR 32.29 ng/L (0-15)
[2022-12-24 20:03] LABS: Troponin 5 2HR Delta -4.71 ABS# (0-10)
[2022-12-24 21:12] VITALS: BP 112/66; PULSE 81; RESP 12; O2SAT 95
[2022-12-25 16:29] LABS: Glucose Point of Care 118 mg/dL (70-110)
== END 2022-12-24 21:06 | disposition home or self-care (01) ==
PROVIDERS: Emergency Medicine; Emergency Provider Emergency Medicine; PCP Internal Medicine
DX: R55 Syncope and collapse (principal); E87.6 Hypokalemia; Z79.84 Long term (current) use of oral hypoglycemic drugs; Z79.4 Long term (current) use of insulin; E11.9 Type 2 diabetes mellitus without complications; E78.5 Hyperlipidemia, unspecified; I10 Essential (primary) hypertension
CPT/HCPCS: 36415; 36416; 70450; 71045; 80053; 81001; 82962; 83735; 83880; 84484; 85025; 93005; 96365; 99285; J3475; J7030

== ENCOUNTER 2022-12-27 06:00 | Outpatient (RCR) | payer MEDICARE, MEDICAID, SELFPAY | END 2023-01-25 23:59 | disposition home or self-care (01) | LOC: TPT 06:00 | PROVIDERS: PCP Internal Medicine; Visit Provider Internal Medicine | DX: M25.512 Pain in left shoulder (principal) | CPT/HCPCS: 97110 ==

== ENCOUNTER → 2023-01-01 14:47 | Outpatient (BNVA) | payer MEDICARE, MEDICAID, SELFPAY | PROVIDERS: PCP Internal Medicine; Visit Provider Otolaryngology | DX: Z48.89 Encounter for other specified surgical aftercare (principal); K13.79 Other lesions of oral mucosa | CPT/HCPCS: 99024 ==

== ENCOUNTER → 2023-01-06 08:47 | Outpatient (BNVA) | payer MEDICARE, MEDICAID, SELFPAY | PROVIDERS: PCP Internal Medicine; Visit Provider Podiatrist Foot & Ankle Surgery | DX: B35.1 Tinea unguium (principal); G62.9 Polyneuropathy, unspecified; E11.42 Type 2 diabetes mellitus with diabetic polyneuropathy; Z79.84 Long term (current) use of oral hypoglycemic drugs; Z79.4 Long term (current) use of insulin | CPT/HCPCS: 11721 ==

== ENCOUNTER 2023-01-26 06:00 | Outpatient (RCR) | payer MEDICARE, MEDICAID, SELFPAY | END 2023-02-18 23:59 | disposition home or self-care (01) | LOC: TPT 06:00 | PROVIDERS: PCP Internal Medicine; Visit Provider Internal Medicine | DX: M25.512 Pain in left shoulder (principal) | CPT/HCPCS: 97110 ==

== ENCOUNTER → 2023-02-11 15:47 | Outpatient (BNVA) | payer MEDICARE, MEDICAID, SELFPAY | PROVIDERS: PCP Internal Medicine; Visit Provider Otolaryngology | DX: K13.79 Other lesions of oral mucosa; Z48.814 Encounter for surgical aftercare following surgery on the teeth or oral cavity | CPT/HCPCS: 99024; 99213 ==

== ENCOUNTER → 2023-02-24 11:00 | Outpatient (BNVA) | payer MEDICARE, MEDICAID, SELFPAY | PROVIDERS: PCP Internal Medicine; Visit Provider Podiatrist Foot & Ankle Surgery | DX: B35.1 Tinea unguium (principal); G62.9 Polyneuropathy, unspecified; E11.42 Type 2 diabetes mellitus with diabetic polyneuropathy; Z79.84 Long term (current) use of oral hypoglycemic drugs; Z79.4 Long term (current) use of insulin | CPT/HCPCS: 11721 ==

== ENCOUNTER → 2023-05-08 14:17 | Outpatient (BNVA) | payer MEDICARE, MEDICAID, SELFPAY | PROVIDERS: PCP Internal Medicine; Visit Provider Nurse Practitioner Family | DX: M19.012 Primary osteoarthritis, left shoulder (principal); M25.512 Pain in left shoulder | CPT/HCPCS: 73030 ==

== ENCOUNTER → 2023-05-22 14:40 | Outpatient (BNVA) | payer MEDICARE, MEDICAID, SELFPAY | PROVIDERS: PCP Internal Medicine; Visit Provider Podiatrist Foot & Ankle Surgery | DX: B35.1 Tinea unguium (principal); E11.42 Type 2 diabetes mellitus with diabetic polyneuropathy; G62.9 Polyneuropathy, unspecified; Z79.4 Long term (current) use of insulin; Z79.84 Long term (current) use of oral hypoglycemic drugs | CPT/HCPCS: 11721 ==

== ENCOUNTER → 2023-05-26 10:35 | Outpatient (BNVA) | payer MEDICARE, MEDICAID, SELFPAY | PROVIDERS: PCP Internal Medicine; Referring Provider Internal Medicine; Visit Provider Specialist | DX: M75.102 Unspecified rotator cuff tear or rupture of left shoulder, not specified as traumatic (principal); M12.812 Other specific arthropathies, not elsewhere classified, left shoulder | CPT/HCPCS: 99204 ==

== ENCOUNTER → 2023-06-30 08:14 | Outpatient (BNVA) | payer MEDICARE, MEDICAID, SELFPAY | PROVIDERS: PCP Internal Medicine; Visit Provider Podiatrist Foot & Ankle Surgery | DX: B35.1 Tinea unguium (principal); G62.9 Polyneuropathy, unspecified; E11.42 Type 2 diabetes mellitus with diabetic polyneuropathy; Z79.4 Long term (current) use of insulin; Z79.84 Long term (current) use of oral hypoglycemic drugs | CPT/HCPCS: 11721 ==

== ENCOUNTER → 2023-07-28 10:57 | Outpatient (BNVA) | payer MEDICARE, MEDICAID, SELFPAY | PROVIDERS: PCP Internal Medicine; Visit Provider Podiatrist Foot & Ankle Surgery | DX: B35.1 Tinea unguium (principal); G62.9 Polyneuropathy, unspecified; E11.42 Type 2 diabetes mellitus with diabetic polyneuropathy; Z79.84 Long term (current) use of oral hypoglycemic drugs; Z79.4 Long term (current) use of insulin | CPT/HCPCS: 11721 ==

== ENCOUNTER 2023-08-06 06:00 | Outpatient (RCR) | payer MEDICARE, MEDICAID, SELFPAY | END 2023-08-14 23:59 | disposition home or self-care (01) | LOC: TPT 06:00 | PROVIDERS: Visit Provider Nurse Practitioner Family | DX: M25.512 Pain in left shoulder (principal) | CPT/HCPCS: 97162 ==

== ENCOUNTER 2023-09-01 13:31 | Outpatient (CLI) | payer MEDICARE, MEDICAID, SELFPAY ==
--- NOTE | 2023-09-01 14:30 | MR_ITS ---
WS: [id number] MRI LEFT SHOULDER NONCONTRAST TECHNIQUE: Sagittal T2, coronal T1, T2 and proton density imaging. Axial gradient PDE imaging. CLINICAL INFORMATION: M75.102 - Unspecified rotator cuff tear or rupture of lef... COMPARISON: None. FINDINGS: Moderate degenerative arthritis AC joint with fluid and edema. Mild downsloping of the acromion with slight subacromial spurring. Slight impingement distal supraspinatus. Subacromial and subdeltoid flui d. Tendinopathy distal supraspinatus. Tiny insertional tear anterior lateral supraspinatus. Normal infra spinatus. Normal teres minor. Subscapularis is normal in appearance. Normal biceps tendon in the bici pital groove. Tendinopathy with enlargement and T2 signal abnormality involving the intra-articular b iceps tendon. Moderate to advanced degenerative narrowing of the glenohumeral articulation. Degenerative fraying of the glenoid labrum. No acute fractures. Normal bone marrow signal in the glenoid and humeral head. MR/MR shoulder LT wo con* [id number] IMPRESSION: 1. Moderate degenerative arthritis AC joint with fluid and edema. 2. Tendinopathy distal supraspinatus with a tiny insertional tear. 3. Rotator cuff is otherwise intact. 4. Normal biceps tendon in the bicipital groove. 5. Tendinopathy intra-articular biceps tendon. 6. No other acute findings.
== END 2023-09-01 13:32 | disposition home or self-care (01) ==
LOC: RAD 13:32
PROVIDERS: PCP Internal Medicine; Visit Provider Specialist
DX: M75.102 Unspecified rotator cuff tear or rupture of left shoulder, not specified as traumatic (principal); M12.812 Other specific arthropathies, not elsewhere classified, left shoulder; E11.42 Type 2 diabetes mellitus with diabetic polyneuropathy; B35.1 Tinea unguium; G62.9 Polyneuropathy, unspecified; Z79.84 Long term (current) use of oral hypoglycemic drugs; Z79.4 Long term (current) use of insulin
CPT/HCPCS: 11721; 73221

== ENCOUNTER → 2023-10-20 14:37 | Outpatient (BNVA) | payer MEDICARE, MEDICAID, SELFPAY | PROVIDERS: PCP Internal Medicine; Visit Provider Specialist | DX: M75.102 Unspecified rotator cuff tear or rupture of left shoulder, not specified as traumatic (principal); M12.812 Other specific arthropathies, not elsewhere classified, left shoulder | CPT/HCPCS: 20610; 99214 ==

== ENCOUNTER → 2023-11-11 14:15 | Outpatient (BNVA) | payer MEDICARE, MEDICAID, SELFPAY | PROVIDERS: PCP Internal Medicine; Visit Provider Podiatrist Foot & Ankle Surgery | DX: B35.1 Tinea unguium (principal); G62.9 Polyneuropathy, unspecified; E11.42 Type 2 diabetes mellitus with diabetic polyneuropathy; Z79.84 Long term (current) use of oral hypoglycemic drugs; Z79.4 Long term (current) use of insulin | CPT/HCPCS: 11721 ==

== ENCOUNTER 2023-11-26 06:00 | Outpatient (RCR) | payer MEDICARE, MEDICAID, SELFPAY | END 2023-11-26 23:59 | disposition home or self-care (01) | LOC: TPT 06:00 | PROVIDERS: Visit Provider Orthopaedic Surgery | DX: M75.102 Unspecified rotator cuff tear or rupture of left shoulder, not specified as traumatic (principal) | CPT/HCPCS: 97162 ==

== ENCOUNTER 2023-11-27 06:00 | Outpatient (RCR) | payer MEDICARE, MEDICAID, SELFPAY | END 2023-12-27 23:59 | disposition home or self-care (01) | LOC: TPT 06:00 | PROVIDERS: Visit Provider Orthopaedic Surgery | DX: M75.102 Unspecified rotator cuff tear or rupture of left shoulder, not specified as traumatic (principal) | CPT/HCPCS: 97110; 97140 ==

== ENCOUNTER 2023-12-28 06:00 | Outpatient (RCR) | payer MEDICARE, MEDICAID, SELFPAY | END 2024-01-26 23:59 | disposition home or self-care (01) | LOC: TPT 06:00 | PROVIDERS: Visit Provider Orthopaedic Surgery | DX: M75.102 Unspecified rotator cuff tear or rupture of left shoulder, not specified as traumatic (principal) | CPT/HCPCS: 97110; 97140 ==

== ENCOUNTER 2024-01-27 06:00 | Outpatient (RCR) | payer MEDICARE, MEDICAID, SELFPAY | END 2024-01-28 23:59 | disposition home or self-care (01) | LOC: TPT 06:00 | PROVIDERS: Visit Provider Orthopaedic Surgery | DX: M75.102 Unspecified rotator cuff tear or rupture of left shoulder, not specified as traumatic (principal) | CPT/HCPCS: 97110 ==

== ENCOUNTER → 2024-02-02 15:03 | Outpatient (BNVA) | payer MEDICARE, MEDICAID, SELFPAY | PROVIDERS: Visit Provider Podiatrist Foot & Ankle Surgery | DX: B35.1 Tinea unguium (principal); G62.9 Polyneuropathy, unspecified; E11.42 Type 2 diabetes mellitus with diabetic polyneuropathy; Z79.84 Long term (current) use of oral hypoglycemic drugs; Z79.4 Long term (current) use of insulin | CPT/HCPCS: 11721 ==

== ENCOUNTER → 2024-04-08 15:42 | Outpatient (BNVA) | payer MEDICARE, MEDICAID, SELFPAY | PROVIDERS: Visit Provider Podiatrist Foot & Ankle Surgery | DX: B35.1 Tinea unguium (principal); E11.42 Type 2 diabetes mellitus with diabetic polyneuropathy; G62.9 Polyneuropathy, unspecified; Z79.4 Long term (current) use of insulin; Z79.84 Long term (current) use of oral hypoglycemic drugs | CPT/HCPCS: 11721 ==

== ENCOUNTER 2024-05-21 08:23 | Outpatient (CLI) | payer MEDICARE, MEDICAID, SELFPAY ==
--- NOTE | 2024-05-21 08:31 | CT_ITS ---
WS: [id number] CT HEAD NONCONTRAST HISTORY: VISUAL HALLUCINATIONS TECHNIQUE: Contiguous axial imaging performed through the brain. Bone and soft tissue windows. Sagitt al and coronal reformats reviewed. All CT scans at [facility] use at least one of these dose optimization techniques: automated exposure control; mA and/or kV adjustment per patient size (includ es targeted exams where dose is matched to clinical indication); or iterative reconstruction. DLP: 1122.28 mGy.cm COMPARISON: 12/24/2022 No acute intracranial hemorrhage, midline shift or mass effect. Mild symmetric atrophy and small vessel disease. No prior infarct. Ventricles: Normal size with no hydrocephalus. No inferior displacement of the cerebellar tonsils. Paranasal sinuses: As visualized are clear. Mastoid air cells: Well pneumatized. Calvarium and scalp: Skull is intact with no soft tissue edema or swelling. CT/CT head wo con* [id number] IMPRESSION: 1. No acute intracranial hemorrhage or edema. 2. Mild atrophy and mild small vessel disease. Similar head CT since 12/24/2022 .
== END 2024-05-21 08:24 | disposition home or self-care (01) ==
PROVIDERS: PCP Internal Medicine; Visit Provider Nurse Practitioner Family
DX: R44.1 Visual hallucinations (principal); G47.33 Obstructive sleep apnea (adult) (pediatric); G31.9 Degenerative disease of nervous system, unspecified; R93.89 Abnormal findings on diagnostic imaging of other specified body structures
CPT/HCPCS: 70450

== ENCOUNTER 2024-05-27 13:59 | Outpatient (CLI) | payer MEDICARE, MEDICAID, SELFPAY | END 2024-05-27 14:00 | disposition home or self-care (01) | LOC: SLEEP 14:02 | PROVIDERS: PCP Internal Medicine; Visit Provider Nurse Practitioner Family | DX: G47.33 Obstructive sleep apnea (adult) (pediatric) (principal); R44.1 Visual hallucinations | CPT/HCPCS: 94762 ==

== ENCOUNTER → 2024-06-10 14:07 | Outpatient (BNVA) | payer MEDICARE, MEDICAID, SELFPAY | PROVIDERS: PCP Internal Medicine; Visit Provider Podiatrist Foot & Ankle Surgery | DX: E11.42 Type 2 diabetes mellitus with diabetic polyneuropathy (principal); B35.1 Tinea unguium; G62.9 Polyneuropathy, unspecified; Z79.4 Long term (current) use of insulin; Z79.84 Long term (current) use of oral hypoglycemic drugs | CPT/HCPCS: 11721 ==

== ENCOUNTER 2024-07-26 07:56 | Outpatient (CLI) | payer MEDICARE, MEDICAID, SELFPAY ==
--- NOTE | 2024-07-26 08:03 | US_ITS ---
WS: [id number] RIGHT UPPER QUADRANT ULTRASOUND HISTORY: THROMBOCYTOPENIA COMPARISON: RIGHT upper quadrant 08/22/2015 Liver: 14.5 cm in length. Normal size liver. Coarse echotexture is from hepatic steatosis most likely. No mass or bile duct dilatation. Portal Vein: Normal hepatopetal flow with monophasic waveform. Gallbladder: Cholecystectomy. CBD: 0.4 cm Pancreas: Not visualized. Right kidney: 9.0 cm in length. Low normal size RIGHT kidney. Diffuse cortical thinning new since 2016. There is no obstruction of the kidney. Aorta and IVC: Unremarkable abdominal aorta and IVC. No ascites. US/US abdomen limited [id number] IMPRESSION: 1. Limited quality RIGHT upper quadrant ultrasound due to body habitus. 2. Prior cholecystectomy. 3. Normal size liver with hepatic steatosis. 4. Low normal size RIGHT kidney with diffuse cortical thinning which is new si nce 2015. Suspect chronic medical renal disease.
== END 2024-07-26 07:57 | disposition home or self-care (01) ==
PROVIDERS: PCP Internal Medicine; Visit Provider Internal Medicine
DX: D69.6 Thrombocytopenia, unspecified (principal); Z90.49 Acquired absence of other specified parts of digestive tract; K76.0 Fatty (change of) liver, not elsewhere classified; R93.421 Abnormal radiologic findings on diagnostic imaging of right kidney
CPT/HCPCS: 76705

== ENCOUNTER → 2024-08-12 14:14 | Outpatient (BNVA) | payer MEDICARE, MEDICAID, SELFPAY | PROVIDERS: PCP Internal Medicine; Visit Provider Podiatrist Foot & Ankle Surgery | DX: E11.42 Type 2 diabetes mellitus with diabetic polyneuropathy (principal); B35.1 Tinea unguium; G62.9 Polyneuropathy, unspecified; Z79.4 Long term (current) use of insulin; Z79.84 Long term (current) use of oral hypoglycemic drugs | CPT/HCPCS: 11721; 99213 ==

== ENCOUNTER → 2024-10-14 12:51 | Outpatient (BNVA) | payer MEDICARE, MEDICAID, SELFPAY | PROVIDERS: PCP Internal Medicine; Visit Provider Podiatrist Foot & Ankle Surgery | DX: E11.42 Type 2 diabetes mellitus with diabetic polyneuropathy (principal); B35.1 Tinea unguium; G62.9 Polyneuropathy, unspecified; Z79.84 Long term (current) use of oral hypoglycemic drugs; Z79.4 Long term (current) use of insulin | CPT/HCPCS: 11721 ==

== ENCOUNTER 2024-10-22 13:54 | Outpatient (CLI) | payer MEDICARE, MEDICAID, SELFPAY ==
--- NOTE | 2024-10-22 14:14 | XR_ITS ---
WS: [email or web address] Exam: XR hip LT 2-3V wo/w pel* [id number] Date/Time of Exam: 10/22/2024 2:14 PM Reason For Exam: LEFT HIP PAIN No acute fracture. Moderate degenerative change of the LEFT hip joint. Normal soft tissues. XR/XR hip LT 2-3V wo/w pel* [id number] IMPRESSION: 1. Moderate DJD. No fracture.
== END 2024-10-22 13:55 | disposition home or self-care (01) ==
LOC: RAD 14:08
PROVIDERS: PCP Internal Medicine; Visit Provider Nurse Practitioner Family
DX: M16.12 Unilateral primary osteoarthritis, left hip (principal)
CPT/HCPCS: 73502

== ENCOUNTER 2024-11-03 13:03 | Outpatient (CLI) | payer MEDICARE, MEDICAID, SELFPAY ==
--- NOTE | 2024-11-03 13:10 | XR_ITS ---
WS: [email or web address] Exam: XR lumbar spine 2-3V* [id number] Date/Time of Exam: 11/03/2024 1:20 PM Reason For Exam: LEFT SCIATICA/L HIP PAIN No fracture or malalignment. Marked spondylosis. Advanced degenerative disc change from L1-L4. Straightening and reversal of the lumbar lordosis. Facet arthropathy at all levels. Mild levoscoliosis of the mid and upper L-spine. L3 laminectomy. XR/XR lumbar spine 2-3V* [id number] IMPRESSION: 1. No fracture or malalignment. 2. Advanced degenerative changes, straightening and mild levoscoliosis. 3. L3 laminectomy.
--- NOTE | 2024-11-03 13:10 | XR_ITS ---
WS: [email or web address] Exam: XR sacroiliac jts m 3V [id number] Date/Time of Exam: 11/03/2024 1:20 PM Reason For Exam: LEFT SCIATICA/L HIP PAIN No fracture or bone destruction. Mild DJD of the SI joints. The SI joints are open. XR/XR sacroiliac jts m 3V [id number] IMPRESSION: 1. Mild bilateral SI joint DJD.
== END 2024-11-03 13:04 | disposition home or self-care (01) ==
LOC: RAD 13:07
PROVIDERS: PCP Internal Medicine; Visit Provider Nurse Practitioner Family
DX: M47.818 Spondylosis without myelopathy or radiculopathy, sacral and sacrococcygeal region (principal); M47.816 Spondylosis without myelopathy or radiculopathy, lumbar region; M51.361 Other intervertebral disc degeneration, lumbar region with lower extremity pain only; M41.9 Scoliosis, unspecified
CPT/HCPCS: 72100; 72202

== ENCOUNTER → 2024-11-11 13:11 | Outpatient (BNVA) | payer MEDICARE, MEDICAID, SELFPAY | PROVIDERS: PCP Internal Medicine; Visit Provider Orthopaedic Surgery | DX: M48.062 Spinal stenosis, lumbar region with neurogenic claudication (principal) | CPT/HCPCS: 72110; 99213 ==

== ENCOUNTER → 2024-11-15 08:13 | Outpatient (BNVA) | payer MEDICARE, MEDICAID, SELFPAY | PROVIDERS: PCP Internal Medicine; Visit Provider Specialist | DX: M25.552 Pain in left hip (principal) | CPT/HCPCS: 73502; 99214 ==

== ENCOUNTER 2024-11-19 14:59 | Outpatient (CLI) | payer MEDICARE, MEDICAID, SELFPAY ==
--- NOTE | 2024-11-19 15:47 | MR_ITS ---
WS: [email or web address] MRI LUMBAR SPINE NONCONTRAST TECHNIQUE: Sagittal T1, T2 and STIR imaging. Axial T1 and T2 imaging. CLINICAL INFORMATION: left leg pain COMPARISON: MRI 2021 FINDINGS: Interval postoperative changes decompressive laminectomies L2-3 and L3-4 with discectomy. Resection of the previously described disc extrusion posterior to L3. Disc space narrowing is progressed compared to 2022 worse at L2-L3 and L3-L4. Small disc protrusion in the lower thoracic spine at T10-11 with mild central canal stenosis. This was not included on the prior imaging. L1-L2: Mild disc bulge with endplate ridging. Narrowing of the subarticular recess bilaterally. Mild central canal stenosis. Central canal stenosis appears stable. Moderate facet arthropathy. Mild bilateral foraminal narrowing. L2-L3: Laminectomy defects. Mild residual narrowing of the thecal sac. Narrowing of the RIGHT subarticular recess. Moderate facet arthropathy. Mild disc bulging. Mild RIGHT greater than LEFT foraminal narrowing. L3-L4: Postoperative changes new from previous. Laminectomy defects. Moderate residual narrowing of the thecal sac with crowding of the cauda equina nerve rootlets. Moderate facet arthropathy. Narrowing of the subarticular recess. RIGHT eccentric disc bulging with mild RIGHT greater than LEFT foraminal narrowing. L4-L5: Central disc protrusion with a small annular fissure. Moderate central canal stenosis. Impingement of the traversing L5 nerve roots bilaterally. Moderate facet arthropathy. Mild LEFT foraminal narrowing. Central canal stenosis appears progressed. L5-S1: Mild disc bulging. Moderate facet arthropathy. Foramen are patent. Bilateral renal cortical atrophy. Partially visualized LEFT renal cyst. Visualized pelvic bony structures: Normal. Paravertebral soft tissues: Normal. MR/MR lumbar spine wo con* [id number] IMPRESSION: 1. Interval postoperative changes laminectomies L2-L3 and L3-L4 with microdisc ectomy. 2. Mild residual narrowing of the thecal sac L2-3 and moderate at L3-4 due to disc osteophyte ridging and facet arthropathy. Narrowing of the subarticular re cess worse at RIGHT L2-3 and bilateral L3-4. 3. RIGHT eccentric disc bulging L3-4 with mild RIGHT foraminal narrowing. 4. Central disc protrusion L4-5 with a small annular fissure and moderate cent ral canal stenosis. This appears progressed compared to previous with impingeme nt of the traversing L5 nerve roots bilaterally. Mild LEFT foraminal narrowing. Moderate facet arthropathy. 5. Mild central canal stenosis L1-2 appears stable. 6. Small disc protrusion in the lower thoracic spine at T10-11 with mild cent ral canal stenosis. This was not included on the prior imaging
== END 2024-11-19 15:00 | disposition home or self-care (01) ==
LOC: RAD 15:01
PROVIDERS: PCP Internal Medicine; Visit Provider Orthopaedic Surgery
DX: M48.062 Spinal stenosis, lumbar region with neurogenic claudication (principal); M51.361 Other intervertebral disc degeneration, lumbar region with lower extremity pain only; M48.04 Spinal stenosis, thoracic region; M51.26 Other intervertebral disc displacement, lumbar region; M51.24 Other intervertebral disc displacement, thoracic region; M47.896 Other spondylosis, lumbar region
CPT/HCPCS: 72148

== ENCOUNTER → 2024-11-23 13:35 | Outpatient (BNVA) | payer MEDICARE, MEDICAID, SELFPAY | PROVIDERS: PCP Internal Medicine; Visit Provider Orthopaedic Surgery | DX: Z09 Encounter for follow-up examination after completed treatment for conditions other than malignant neoplasm (principal); M48.061 Spinal stenosis, lumbar region without neurogenic claudication | CPT/HCPCS: 99213 ==

== ENCOUNTER 2024-11-26 05:00 | Outpatient (RCR) | payer MEDICARE, MEDICAID, SELFPAY | END 2024-12-26 23:59 | disposition home or self-care (01) | LOC: TPT 05:00 | PROVIDERS: Visit Provider Podiatrist Foot & Ankle Surgery | DX: M54.50 Low back pain, unspecified (principal) | CPT/HCPCS: 97110; 97161 ==

== ENCOUNTER → 2024-12-14 13:09 | Outpatient (BNVA) | payer MEDICARE, MEDICAID, SELFPAY | PROVIDERS: Visit Provider Podiatrist Foot & Ankle Surgery | DX: E11.42 Type 2 diabetes mellitus with diabetic polyneuropathy (principal); B35.1 Tinea unguium; G62.9 Polyneuropathy, unspecified; Z79.84 Long term (current) use of oral hypoglycemic drugs | CPT/HCPCS: 11721 ==

== ENCOUNTER 2024-12-27 05:00 | Outpatient (RCR) | payer MEDICARE, MEDICAID, SELFPAY | END 2025-01-25 23:59 | disposition home or self-care (01) | LOC: TPT 05:00 | PROVIDERS: Visit Provider Podiatrist Foot & Ankle Surgery | DX: M54.50 Low back pain, unspecified (principal) | CPT/HCPCS: 97110 ==

== ENCOUNTER → 2025-01-04 13:20 | Outpatient (BNVA) | payer MEDICARE, MEDICAID, SELFPAY | PROVIDERS: Visit Provider Orthopaedic Surgery | DX: M48.062 Spinal stenosis, lumbar region with neurogenic claudication (principal) | CPT/HCPCS: 99213 ==

== ENCOUNTER 2025-02-04 13:04 | Outpatient (RCR) | payer MEDICARE, MEDICAID, SELFPAY | END 2025-02-07 10:04 | disposition home or self-care (01) | LOC: TPT 13:04 | PROVIDERS: Visit Provider Podiatrist Foot & Ankle Surgery | DX: M54.50 Low back pain, unspecified (principal) | CPT/HCPCS: 97110 ==

== ENCOUNTER → 2025-02-18 08:38 | Outpatient (BNVA) | payer MEDICARE, MEDICAID, SELFPAY | PROVIDERS: PCP Internal Medicine; Visit Provider Podiatrist Foot & Ankle Surgery | DX: L60.0 Ingrowing nail (principal); B35.1 Tinea unguium; E11.42 Type 2 diabetes mellitus with diabetic polyneuropathy; G62.9 Polyneuropathy, unspecified; Z79.84 Long term (current) use of oral hypoglycemic drugs; Z79.4 Long term (current) use of insulin | CPT/HCPCS: 11750; 99214; A6219; J9999 ==

== ENCOUNTER → 2025-03-04 08:25 | Outpatient (BNVA) | payer MEDICARE, MEDICAID, SELFPAY | PROVIDERS: PCP Internal Medicine; Visit Provider Podiatrist Foot & Ankle Surgery | DX: L60.0 Ingrowing nail (principal); E11.42 Type 2 diabetes mellitus with diabetic polyneuropathy; B35.1 Tinea unguium; G62.9 Polyneuropathy, unspecified; Z79.84 Long term (current) use of oral hypoglycemic drugs; Z79.4 Long term (current) use of insulin | CPT/HCPCS: 11750; 99213; A6219; J9999 ==